=== PATIENT | female | born 1980 | race Caucasian/White ===

== ENCOUNTER → 2016-07-25 | Outpatient (CLI) | payer OTHER ==
--- NOTE | 2016-07-25 13:35 | RAD ---
EXAM DESCRIPTION: Abdomen radiography. CLINICAL HISTORY: Right lower quadrant abdominal pain, acute onset. COMPARISON: None. TECHNIQUE: Two views. FINDINGS: Bowel gas pattern is non-obstructed. There is no obvious free intraperitoneal air. Visualized segments of the abdominal organs are unremarkable. No suspicious bone lesion or fracture is seen. Bilateral tubal ligation. IMPRESSION: Nonspecific small bowel gas pattern. No evidence of obstruction. Electronically signed by: Quang Gunderson MD 07/25/2016 13:33
== END ==
LOC: RAD 12:43
PROVIDERS: ATTEND Surgery
DX: R10.11 Right upper quadrant pain (principal)

== ENCOUNTER → 2016-07-31 | Outpatient (CLI) | payer OTHER | LOC: LAB.O 12:37 | PROVIDERS: ATTEND Internal Medicine | DX: J47.9 Bronchiectasis, uncomplicated (principal) ==

== ENCOUNTER 2016-09-17 13:07 | Inpatient (IN) | payer OTHER ==
--- NOTE | 2016-09-17 13:08 | HP ---
HISTORY OF PRESENT ILLNESS: This 36-year-old, white female who is an employee of [employer] has become quite ill for the last four or five days. Other members of her family including her child as well as her mother have been ill as well and are now doing a little bit better. It started with nasal and respiratory congestion leading to hoarseness, sore throat, and eventually to a greenish sputum production moving into her lungs and contributing to some tightness in her lungs and worsening symptoms. She has been problemed by frequent recurring upper respiratory infections since a child. She was born with a condition called atelectasis and has required significant recurring treatment episodes to allow the course to continue. Dr. Garcia has followed her for the last two to three months. She has had at least two or three episodes of significant respiratory infections. She has received Rocephin, Celestone and, more recently, Bactrim. She had been given Bactrim and the prescription was called to the pharmacy, but it took her several days a month or so ago before she was able to find that the prescription was called to a different pharmacy, so delayed treatment was noted, but she still got better after a while until four days ago. She has had no hemoptysis, no nausea, vomiting, or diarrhea and only a low grade fever and chills. In May of 2016, she was admitted to the [facility] for a period of time and found to have sputum positive for a non-MRSA species. She had a chest x-ray earlier today with Dr. Garcia' clinic as well as normal white count on CBC and is admitted to the hospital because of progressive worsening even with recurring antibiotic courses. She apparently is presenting with worsening bronchiectasis with exacerbation. PAST MEDICAL HISTORY: 1. Gestational diabetes. 2. History of bronchiectasis as a child resulting in frequent recurring infections of the lung. PAST SURGICAL HISTORY: 1. Nasal fracture. 2. [place] teeth removal. 3. Sinus surgery. 4. Tonsillectomy. 5. Adenoidectomy. 6. Tubal ligation. CURRENT MEDICATIONS: None except methotrexate which she does not take while on antibiotics and infected, and in fact she has not taken the methotrexate for her arthritis for the last 2-1/2 months since her hospitalization in May of 2016. ALLERGIES: NONE KNOWN. FAMILY HISTORY: Positive for diabetes, cancer, heart disease, and strokes. 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 REVIEW OF SYSTEMS: GENERAL: Low grade fever, chills. No significant weight change recently. HEENT: No hearing or visual disturbances. NECK: No significant pain or stiffness. LUNGS: Significant cough, greenish sputum production with mild shortness of breath upon exertion and generalized malaise as well as hoarseness and sore throat. Other members of her family have also been ill. CARDIOVASCULAR: Some mild chest discomfort, especially on the right side, on deep breathing, but no palpitations. GASTROINTESTINAL: No nausea or vomiting. No diarrhea or blood in the stools. EXTREMITIES: No significant edema state. NEUROLOGIC: No focal neurologic deficits. No significant headaches. PHYSICAL EXAMINATION: VITAL SIGNS: Afebrile. Pulse 70. Blood pressure 122/76. Pulse oximetry 97% on room air. Weight 119.6 kg. GENERAL: The patient is awake, alert, oriented and communicative. She has frequent spells of deep coughing which is producing some grayish-green sputum. Specimen sent to the lab. HEENT: Within normal limits except for nasal congestion and some greenish expectorations noted from her lungs, some of which may be coming from the posterior nasal drainage from the sinuses. LUNGS: Diminished breath sounds especially in the right base and tenderness over the right anterior chest upon palpation of the chest. ABDOMEN: Soft, obese with no organomegaly, masses noted. EXTREMITIES: Fairly good size with good muscle tone. No significant pedal edema. NEUROLOGIC: No focal neurological deficits are noted. The patient is awake, alert, oriented and communicative. LABORATORY: Initial CBC showed white count about 8,000 and pulse oximetry in the mid-90s. Initial chemistries showed potassium low at 3.6, BUN 15, creatinine 0.69, glucose 109. Liver enzymes normal, albumin 4. Chest x-ray performed in the clinic and we are awaiting interpretation and opportunity to look at the films which were initially reported as showing some minor perihilar infiltrates. The possibility of a right middle lobe infiltrate to be observed closely. ASSESSMENT: 1. Chronic bronchiectasis with an acute exacerbation, rule out inspissated bronchial secretions with significant respiratory symptoms. 2. History of rheumatoid arthritis on methotrexate recently, but now stopped. 3. Chronic sinusitis, possibly contributing to the patient's symptom complex. 4. Acute bronchitis superimposed on chronic bronchiectasis. PLAN: We will continue current treatment program. Await MRSA surveillance culture. Add potassium to the supplements. He is started on combination fluoroquinolone with Levaquin as well as cefepime to assist with approaching a potential gram negative or pseudomonas infectious condition within the bronchiectasis condition. Await cultures. Close followup necessary. May eventually benefit from pulmonary intervention. May eventually benefit from bronchoscopy if symptoms do not improve. #[id number] [facility]
[2016-09-17] MEDS ORDERED: SODIUM CHLORIDE 0.9% (FLUSH) 10 ML SYG IV PRN (13:24)
[2016-09-17] MEDS ORDERED: MAGNESIUM HYDROXIDE 30 ML UD PO PRN (13:26)
[2016-09-17] MEDS ORDERED: SODIUM CHLORIDE 0.9% 1000ML 1,000 ML IVS PRN (13:26)
[2016-09-17] MEDS ORDERED: LEVALBUTEROL NEBS 1.25 MG/3 ML VIAL INH PRN (13:26)
[2016-09-17] MEDS ORDERED: IV SET AND CAP CHANGE INJ INJ SCH (13:30)
[2016-09-17] MEDS: IPRATROPIUM/ALBUTEROL 3 ML VIAL INH SCH ×3 (13:45→21:09)
[2016-09-17] MEDS ORDERED: SODIUM CHL 0.9% 50ML MIN-BAG+ 50 ML IVPB ONE ×2 (13:59→20:15)
[2016-09-17] MEDS ORDERED: CEFEPIME 2 GM VIAL IVPB ONE ×2 (13:59→20:15)
[2016-09-17] MEDS: CEFEPIME 2 GM in SODIUM CHL 0.9% 50ML MIN-BAG+ 50 ML IVPB SCH (14:09)
[2016-09-17] MEDS ORDERED: SODIUM CHLORIDE 0.9% 10 ML VIAL IV PRN (14:15)
[2016-09-17] MEDS ORDERED: levoFLOXacin 750MG IV 750 MG in PREMIX BAG 1 BAG IVPB SCH (14:30)
[2016-09-17] MEDS ORDERED: KCL 20 MEQ/NS 1,000 ML IVS PRN (14:34)
[2016-09-17] MEDS ORDERED: POTASSIUM CHLORIDE INJ 20 MEQ 20 MEQ in SODIUM CHLORIDE 0.9% 1000ML 1,000 ML IV PRN (14:43)
[2016-09-17] MEDS ORDERED: KCL 20 MEQ/NS 1,000 ML IVS ONE (14:57)
[2016-09-17] MEDS: POTASSIUM CHLORIDE 10 MEQ TAB PO SCH (15:36)
[2016-09-17] MEDS: ACETAMINOPHEN 325 MG TAB PO PRN (16:03)
[2016-09-17] MEDS ORDERED: diphenhydrAMINE HCL 25 MG CAP PO ONE (16:27)
[2016-09-17] MEDS: KCL 20 MEQ/NS 1,000 ML IVS PRN (17:13)
--- NOTE | 2016-09-17 17:26 | PCM.CORE ---
Physician DVT/VTE - Nurse DVT Assessment & Total Each Risk Factor is 1 Point: Obesity (BMI >25), Serious Lung disease (pnemonia < 1month, COPD, emphysema,etc) DVT Assessment Score: 2 - 2 Moderate Risk Treatments: Sequential Compression Device
[2016-09-17] MEDS ORDERED: ENOXAPARIN SODIUM 30 MG/0.3 ML SYG SUBCU SCH (17:30)
[2016-09-17] MEDS: AZITHROMYCIN 250 MG TAB PO SCH (17:38)
[2016-09-17] MEDS: IBUPROFEN 400 MG TAB PO PRN (20:23)
[2016-09-18] MEDS: CEFEPIME 2 GM in SODIUM CHL 0.9% 50ML MIN-BAG+ 50 ML IVPB SCH ×2 (01:49→14:46)
[2016-09-18] MEDS ORDERED: PANTOPRAZOLE SODIUM TAB 40 MG PO ONE (05:05)
[2016-09-18] MEDS: KCL 20 MEQ/NS 1,000 ML IVS PRN ×2 (05:10→19:55)
[2016-09-18] MEDS ORDERED: BENZONATATE PERLES 100 MG CAP PO PRN (05:24)
[2016-09-18] MEDS ORDERED: PROMETHAZINE W/CODEINE SYR 5 ML UD PO PRN (05:26)
[2016-09-18] MEDS: PANTOPRAZOLE SODIUM TAB 40 MG PO SCH (05:57)
--- NOTE | 2016-09-18 07:42 | RAD ---
Study: Frontal and Lateral Views of the Chest. Indication: Pneumonia Comparison: May 31, 2016 Impression: Moderate cardiomegaly with mild central pulmonary vascular congestion. Otherwise, lungs clear. No acute osseous abnormality. Electronically signed by: Nilay Chaudhry MD 09/18/2016 7:41 AM [employer]CRA[employer]
[2016-09-18] MEDS: POTASSIUM CHLORIDE 10 MEQ TAB PO SCH (07:47)
[2016-09-18] MEDS: IPRATROPIUM/ALBUTEROL 3 ML VIAL INH SCH ×4 (08:37→20:43)
--- NOTE | 2016-09-18 10:36 | RAD ---
Study: Frontal and Lateral Views of the Chest. Indication: Pneumonia Comparison: May 31, 2016 Impression: Moderate cardiomegaly with mild central pulmonary vascular congestion. Otherwise, lungs clear. No acute osseous abnormality. 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
[2016-09-18] MEDS: IBUPROFEN 400 MG TAB PO PRN (11:40)
[2016-09-18] MEDS ORDERED: CEFEPIME 2 GM VIAL IVPB ONE (14:41)
[2016-09-18] MEDS ORDERED: SODIUM CHL 0.9% 50ML MIN-BAG+ 50 ML IVPB ONE (14:42)
[2016-09-18] MEDS: ENOXAPARIN SODIUM 40 MG/0.4 ML SYG SUBCU SCH (16:23)
[2016-09-18] MEDS: HYDROcodone 5MG/APAP 325MG 1 EA TAB PO PRN ×2 (16:35→22:08)
[2016-09-18] MEDS: AZITHROMYCIN 250 MG TAB PO SCH (17:23)
--- NOTE | 2016-09-18 19:13 | PN ---
DATE: 09/18/16 SUBJECTIVE: The patient is sitting up in the bed and appears to be less dyspneic today compared to yesterday. She says in many ways she feels about the same as yesterday. She appears to be in less respiratory distress. Still coughing with some expiratory wheezing bilaterally noted in the room even without auscultation. Appetite is fairly good. Family is also present. She describes the rotations of upper respiratory infections through various family members until it came to her. Her infection started with her sinuses and then descended into her lungs. Old CT scans reveal significant architectural changes of her lungs with bronchiectasis and secretions that may eventually required bronchoscopy to assist in clearing. Also CT of the sinuses did reveal previous ethmoid surgery and chronic left sided maxillary sinusitis is evident. OBJECTIVE: Afebrile, pulse 67, blood pressure 104/44, pulse oximetry 95% on room air. Weight is 119.3 kilos. The patient is awake, alert and oriented. LUNGS: Have some bilateral rhonchi with somewhat decreased breath sounds on the right compared to the left with expiratory slowing and some rhonchi bilaterally , and some wheezing more prominent on the right than the left. HEART: Tones regular. ABDOMEN: Obese yet soft. LABORATORY: White count 5,000, hemoglobin 13.5, neutrophils 47%. Chemistry shows potassium 4.2, BUN 11, creatinine 0.58, glucose 94. C reactive protein 1.7. Urine shows some pyuria and 1+ bacteriuria. Strep screen is negative. Urine culture is negative as also is blood cultures and MRSA surveillance culture. Sputum is normal pradip at 24 hours. Influenza A and B is negative. Chest x-ray today does reveal some degree of congestion, otherwise no significant abnormalities noted. ASSESSMENT: 1. Chronic bronchiectasis noted since a child with an acute exacerbation, rule out inspissated bronchial secretions with associated significant respiratory symptoms. 2. History of rheumatoid arthritis on methotrexate recently, now stopped. 3. Chronic sinusitis, especially left maxillary possibly contributing to some of the patient's symptom complex. 4. Acute bronchitis superimposed on chronic bronchiectasis. PLAN: Will continue with Cefepime and Azithromycin combination and increase activity level. Await reevaluation. Have ordered repeat daily ambulation studies to more adequately measure and compare cardiopulmonary functioning. Increase activity is important. #[id number] [facility]
[2016-09-19] MEDS ORDERED: CEFEPIME 2 GM VIAL IVPB ONE ×3 (01:25→20:56)
[2016-09-19] MEDS ORDERED: SODIUM CHL 0.9% 50ML MIN-BAG+ 50 ML IVPB ONE ×3 (01:25→20:56)
[2016-09-19] MEDS: CEFEPIME 2 GM in SODIUM CHL 0.9% 50ML MIN-BAG+ 50 ML IVPB SCH ×2 (01:34→14:18)
[2016-09-19] MEDS: IBUPROFEN 400 MG TAB PO PRN ×2 (03:06→17:36)
[2016-09-19] MEDS: PANTOPRAZOLE SODIUM TAB 40 MG PO SCH (06:22)
[2016-09-19] MEDS: POTASSIUM CHLORIDE 10 MEQ TAB PO SCH (07:40)
[2016-09-19] MEDS: IPRATROPIUM/ALBUTEROL 3 ML VIAL INH SCH ×4 (08:05→19:20)
[2016-09-19] MEDS: KCL 20 MEQ/NS 1,000 ML IVS PRN (08:29)
[2016-09-19] MEDS: guaiFENesin ER TAB 600 MG TAB PO SCH ×2 (09:37→21:02)
[2016-09-19] MEDS: ACETAMINOPHEN 325 MG TAB PO PRN (11:01)
[2016-09-19] MEDS ORDERED: methylPREDNISolone SODIUM SUC 125 MG/2 ML VIAL IV ONE (11:30)
[2016-09-19] MEDS: ENOXAPARIN SODIUM 40 MG/0.4 ML SYG SUBCU SCH (14:18)
[2016-09-19] MEDS: AZITHROMYCIN 250 MG TAB PO SCH (17:36)
[2016-09-19] MEDS: SODIUM CHLORIDE 0.9% (FLUSH) 10 ML SYG IV SCH (21:02)
[2016-09-19] MEDS: HYDROcodone 5MG/APAP 325MG 1 EA TAB PO PRN (21:12)
[2016-09-20] MEDS: CEFEPIME 2 GM in SODIUM CHL 0.9% 50ML MIN-BAG+ 50 ML IVPB SCH (01:38)
[2016-09-20] MEDS: PANTOPRAZOLE SODIUM TAB 40 MG PO SCH (06:22)
[2016-09-20] MEDS: POTASSIUM CHLORIDE 10 MEQ TAB PO SCH (08:01)
[2016-09-20] MEDS: IPRATROPIUM/ALBUTEROL 3 ML VIAL INH SCH (09:00)
--- NOTE | 2016-09-20 09:15 | PN ---
SUPERVISING PHYSICIAN: Diana Wills MD DATE: 09/19/16 SUBJECTIVE: The patient is sitting up in bed. She complains of some shortness of breath as well as a headache. Otherwise, she denies any abdominal pain, nausea, vomiting, dizziness, or weakness. She states she still coughs occasionally, but it is better and she still has quite a bit of phlegm she is coughing up. OBJECTIVE: VITAL SIGNS: Afebrile. Heart rate 62. Blood pressure 111/55. Respiratory rate got up as high as 48, but it is now 20 breaths per minute. Oxygen saturation 92%. GENERAL: This is a 36-year-old female patient who is lying in her hospital bed. She is in no acute distress. LUNGS: Expiratory wheezing noted to the right upper and lower lobes. Essentially clear to auscultation on the left. CARDIAC: Regular rate and rhythm. ABDOMEN: Soft, nontender, nondistended. Bowel sounds are positive. EXTREMITIES: No cyanosis, clubbing or edema. NEUROLOGIC: Awake, alert and oriented times three. LABORATORY: Her preliminary surveillance MRSA of the nose shows gram positive cocci Her preliminary blood cultures show no growth after 24 hours as well as the urine culture shows no growth. ASSESSMENT: 1. Acute on chronic bronchiectasis with a history of chronic bronchiectasis since a child. 2. History of rheumatoid arthritis on methotrexate that has now been stopped. 3. Chronic sinusitis, especially left maxillary possibly contributing to some of the patient's symptom complex. 4. Mild eosinophilia. 5. Tachypnea with some mild hypoxia. PLAN: We will continue present supportive care included good pulmonary hygiene. I have also added percussion. I have also given her Mucinex 1200 mg twice a day. I have discontinued her IV fluids as she is taking p.o. fluids well. We will do routine lab in the morning. Due to her wheezing, I have also given her some steroids. I have only given her one dose. We may need to continue a taper tomorrow, but we will reevaluate tomorrow. She will need close followup with an ENT physician as well as seeing her administrative tech, Dr. Mathew Harden, in [place]. She will need a pulmonary function test at discharge. She will be encouraged to ambulate at least 3 times a day. We will continue to follow the patient closely and treat as needed. Dr. Wills is the collaborating physician and available for consultation. #[id number] [facility]
[2016-09-20] MEDS: IBUPROFEN 400 MG TAB PO PRN (09:28)
[2016-09-20] MEDS: SODIUM CHLORIDE 0.9% (FLUSH) 10 ML SYG IV SCH (09:32)
[2016-09-20] MEDS: guaiFENesin ER TAB 600 MG TAB PO SCH (09:32)
[2016-09-20 11:24] VITALS: BP 113/69; TEMP 97.6; O2SAT 96
--- NOTE | 2016-09-20 14:12 | DS ---
SUPERVISING PHYSICIAN: Diana Wills MD DISCHARGE DIAGNOSIS: 1. Acute on chronic bronchiectasis with a history of chronic bronchiectasis since a child. 2. History of rheumatoid arthritis on methotrexate that has now been stopped. 3. Chronic sinusitis, especially left maxillary, possibly contributing to some of the patient's symptom complex. 4. Mild eosinophilia. 5. Tachypnea with some hypoxia. HISTORY OF PRESENT ILLNESS: This is a 36-year-old female patient that is an employee of [employer]. She had become quite ill the last several days prior to admission. She has had several family members that have been ill, but are doing better. It started with nasal and respiratory congestion that led to hoarseness, sore throat, and eventually a greenish sputum. Her lungs had quite a bit of phlegm and included some tightness in her lungs with some increasing sputum production. She has had frequent recurring upper respiratory infections since she was a child and she has required frequent treatments on and off through most of her life. Dr. Garcia has been seeing her over the last two to three months and she has had at least two to three episodes of significant respiratory infections. She has received Rocephin , Celestone and Bactrim in the last several months. It should be noted that there was no hemoptysis, nausea, vomiting or diarrhea. She had a low grade fever and chills. In May of 2016, she was admitted to the [facility] for a period of time and found to have a sputum positive for non-MRSA species. In Dr. Garcia' clinic on the day of admission, she had a normal white count as well as a chest x-ray and she was directly admitted to the hospital due to failing outpatient therapy and recurrent antibiotic courses with worsening symptoms. She presented with worsening bronchiectasis with exacerbation. HOSPITAL COURSE: The patient was placed in the hospital. She was given breathing treatments as well as Mucinex twice daily. On the day prior to discharge, she had quite a bit of wheezing and was given a one time dose of steroids. Her white count went up slightly today, but that was most likely to her steroids. Chemistries were basically within normal limits except for a slightly elevated glucose which was also most likely due to her steroids. It is to be noted that she did have some mild eosinophilia that has been present on two or three of her CBCs. I spoke with Dr. Harden today and he will see her in his clinic today to begin workup on her chronic bronchiectasis as well as her eosinophilia. DISCHARGE PLAN: The patient will be discharged home in good condition. She is to resume her previous activity and increase it as tolerated. She is to resume her previous diet. She has an appointment today with Dr. Harden in [place]. I have sent her home on Mucinex. I spoke with Dr. Harden and he said at this time due to her cultures being negative that he would withhold antibiotics until he saw her. Her original nasal culture showed gram positive cocci, but today the final screen came back on it and it was within normal limits. She has a followup with Dr. Garcia next week. If she has any further problems or complications, she can followup with Dr. Garcia or or return to the hospital as needed. DISCHARGE MEDICATIONS: 1. Mucinex. Dr. Wills is the collaborating physician and available for consultation. #[id number] [facility]
== END 2016-09-20 11:39 | disposition home or self-care (01) | DRG 192 ==
LOC: MS 13:07 → OBSVTOIN 13:07
PROVIDERS: ADMIT Family Medicine; ATTEND Nurse Practitioner Acute Care
DX: J47.0 Bronchiectasis with acute lower respiratory infection (principal); J20.9 Acute bronchitis, unspecified; M06.9 Rheumatoid arthritis, unspecified; J32.0 Chronic maxillary sinusitis; D72.1 Eosinophilia; R09.02 Hypoxemia; E66.9 Obesity, unspecified

== ENCOUNTER → 2017-03-29 | Outpatient (CLI) | payer OTHER | END | disposition home or self-care (01) | LOC: LAB.O 12:39 | PROVIDERS: ATTEND Nurse Practitioner Acute Care | DX: N91.2 Amenorrhea, unspecified (principal) ==

== ENCOUNTER → 2017-04-02 | Outpatient (CLI) | payer OTHER | END | disposition home or self-care (01) | LOC: LAB.O 09:26 | PROVIDERS: ATTEND Nurse Practitioner Acute Care | DX: N91.2 Amenorrhea, unspecified (principal) ==

== ENCOUNTER → 2017-04-18 | Outpatient (CLI) | payer OTHER | END | disposition home or self-care (01) | LOC: LAB.O 08:34 | PROVIDERS: ATTEND Family Medicine | DX: Z00.00 Encounter for general adult medical examination without abnormal findings (principal) ==

== ENCOUNTER 2017-06-03 19:44 | Emergency (ER) | payer OTHER ==
[2017-06-03 20:07] VITALS: TEMP 97.4
--- NOTE | 2017-06-03 20:20 | ED.PDOC ---
History of Present Illness - General Chief Complaint: General Stated Complaint: dizzy, lightheaded Time Seen by Provider: 06/03/17 20:17 Source: patient Exam Limitations: no limitations - History of Present Illness Initial Comments: Tonya Stringer 36 y/o female who had recent weight loss surgery came to ER by POV because of feeling lightheaded,shaky,feels like passing out.No chest pains ,no slurred speech,no nausea/vomiting,no hematemesis. Timing/Duration: 4-6 hours Severity: moderate Improving Factors: nothing Worsening Factors: nothing Associated Symptoms: other - see hpi Allergies/Adverse Reactions: Allergies Levofloxacin [From Levaquin] Adverse Reaction (Intermediate, Verified 09/17/16 18:45) Rash Azithromycin Adverse Reaction (Verified 06/03/17 20:18) Home Medications: Ambulatory Orders Methylcobalamin [B-12] 06/03/17 Multiple Vitamin [Multi Vitamin] 1 tab PO 06/03/17 Omeprazole 06/03/17 Review of Systems - Review of Systems Constitutional: States: see HPI EENTM: States: no symptoms reported Respiratory: States: no symptoms reported Cardiology: States: no symptoms reported Gastrointestinal/Abdominal: States: no symptoms reported Genitourinary: States: no symptoms reported Musculoskeletal: States: no symptoms reported Skin: States: no symptoms reported Neurological: States: no symptoms reported Past Medical History (General) - Patient Medical History Hx Seizures: No Hx Stroke: No Hx Asthma: No Hx of COPD: No Hx Congestive Heart Failure: No Hx Pacemaker: No Hx Hypertension: No Hx Diabetes: No - gestational diabetes Hx Renal Disease: No Hx MRSA: No Hx Other PMH: Yes - Bronchiectasis Surgical History: other - bariatric surgery,BTL - Vaccination History Hx Tetanus, Diphtheria Vaccination: Yes Hx Influenza Vaccination: No Hx Pneumococcal Vaccination: No - Social History Hx Tobacco Use: No Hx Alcohol Use: No Hx Substance Use: No Hx Substance Use Treatment: No Hx Physical Abuse: No Hx Emotional Abuse: No - Activities of Daily Living Patient Lives Alone: No - family - Female History Patient is a Female of Child Bearing Age (10 -59 yrs old): Yes Hx Last Menstrual Period: 05/27/14 Patient : No Expected Date of Delivery:: 05/19/14 - Triage Comment ED Triage Comment: recent gastric surgery, causing intake of only small amts liquid diet. Sent from clinic for possible dehydration Family Medical History - Family History Mother Name: Venessa Age (years): 51 Living Status: Still Living Hx Family Asthma: Yes Age of Onset (years of age): 21 Hx Family Congestive Heart Failure: No Hx Family Hypertension: Yes Age of Onset (years of age): 27 Hx Family Stroke: Yes Age of Onset (years of age): 27 Hx Cardiac Disease: Yes - MVP Age of Onset (years of age): 35 Hx Family Diabetes: Yes Age of Onset (years of age): 46 Hx Family Cancer: Yes - cervical-sister;Breast-aunt Physical Exam - Physical Exam General Appearance: Alert, Anxious, Comfortable, No apparent distress Eye Exam: bilateral normal Ears, Nose, Throat: hearing grossly normal, normal ENT inspection, normal pharynx Neck: non-tender, supple, normal inspection Respiratory: chest non-tender, lungs clear Cardiovascular/Chest: normal peripheral pulses, regular rate, rhythm, no murmur Peripheral Pulses: radial,right: 2+, radial,left: 2+ Gastrointestinal/Abdominal: normal bowel sounds, non tender, soft, no organomegaly Back Exam: normal inspection, no CVA tenderness, no vertebral tenderness Extremity: normal range of motion, no pedal edema, no calf tenderness Neurologic: alert, oriented x 3 Skin Exam: normal color, warm/dry, other - well healed trocar insertion site Lymphatic: no adenopathy Progress - Progress Progress: 06/03/17 23:10 Last Vital Signs Temp 97.4 F L 06/03/17 20:01 Pulse 70 06/03/17 21:33 Resp 18 06/03/17 21:33 BP 148/85 06/03/17 20:01 Pulse Ox 98 06/03/17 21:33 Laboratory Tests 06/03/17 06/03/17 06/03/17 20:15 20:23 20:23 WBC 5.8 RBC 4.79 Hgb 14.0 Hct 41.5 MCV 86.8 MCH 29.3 MCHC 33.8 RDW 13.1 Plt Count 246 MPV 9.9 Absolute Neuts (auto) 2.10 Absolute Lymphs (auto) 2.80 Absolute Monos (auto) 0.60 Absolute Eos (auto) 0.30 Absolute Basos (auto) 0.00 Neutrophils % 35.9 L Lymphocytes % 48.2 Monocytes % 10.8 H Eosinophils % 4.3 Basophils % 0.8 Sodium 138 Potassium 3.4 L Chloride 102 Carbon Dioxide 23 Anion Gap 16.4 BUN 12 Creatinine 0.68 BUN/Creatinine Ratio 17.6 Random Glucose 67 L Serum Osmolality 273.7 L Calcium 9.5 Magnesium Total Bilirubin 0.7 AST 46 H ALT 54 Alkaline Phosphatase 49 Serum Total Protein 7.7 Albumin 4.6 Globulin 3.1 Albumin/Globulin Ratio 1.5 Serum HCG, Qual Urine Color Dk yellow H Urine Appearance Cloudy H Urine pH 6.0 Ur Specific [place] >= 1.030 Urine Protein 100 H Urine Glucose (UA) Negative Urine Ketones >=160 Urine Blood Large H Urine Nitrite Negative Urine Bilirubin Large Urine Urobilinogen 0.2 Ur Leukocyte Esterase Negative Urine RBC >50 H Urine WBC 1-3 Ur Epithelial Cells 3-5 Urine Bacteria 2+ H 06/03/17 06/03/17 20:23 21:25 WBC RBC Hgb Hct MCV MCH MCHC RDW Plt Count MPV Absolute Neuts (auto) Absolute Lymphs (auto) Absolute Monos (auto) Absolute Eos (auto) Absolute Basos (auto) Neutrophils % Lymphocytes % Monocytes % Eosinophils % Basophils % Sodium Potassium Chloride Carbon Dioxide Anion Gap BUN Creatinine BUN/Creatinine Ratio Random Glucose Serum Osmolality Calcium Magnesium 1.7 L Total Bilirubin AST ALT Alkaline Phosphatase Serum Total Protein Albumin Globulin Albumin/Globulin Ratio Serum HCG, Qual Negative Urine Color Urine Appearance Urine pH Ur Specific [place] Urine Protein Urine Glucose (UA) Urine Ketones Urine Blood Urine Nitrite Urine Bilirubin Urine Urobilinogen Ur Leukocyte Esterase Urine RBC Urine WBC Ur Epithelial Cells Urine Bacteria 06/03/17 23:36 [id number] Departure - Departure Clinical Impression: Hypoglycemia after GI (gastrointestinal) surgery, Fluid depletion, Hypomagnesemia, History of weight loss surgery Time of Disposition: 23:38 Disposition: Discharge to Home or Self Care Condition: Good Departure Forms: ED Discharge - Pt. Copy, Patient Portal Self Enrollment Referrals: Darin Garcia MD [Primary Care Provider] - 1-2 Weeks Home Medications: Ambulatory Orders Methylcobalamin [B-12] 06/03/17 Multiple Vitamin [Multi Vitamin] 1 tab PO 06/03/17 Omeprazole 06/03/17 Additional Instructions: NEED TO CALL UP BARIATR[facility] SURGEONS OFFICE IN AM 06/04/2017 continue with all home meds
[2017-06-03] MEDS ORDERED: DEX 5% W/NACL 0.45% 1000ML 1,000 ML IVS PRN (21:25)
[2017-06-03] MEDS ORDERED: IPRATROPIUM/ALBUTEROL 3 ML VIAL NEB ONE (21:27)
[2017-06-03 22:23] VITALS: O2SAT 98
[2017-06-03] MEDS ORDERED: MAGNESIUM SULFATE PREMIX 2GM 2 GM in PREMIX BAG 1 BAG IVPB ONE (23:12)
[2017-06-03] MEDS ORDERED: MAGNESIUM SULFATE PREMIX 2GM 50 ML IVPB ONE (23:18)
[2017-06-04 00:15] VITALS: BP 109/73
== END 2017-06-04 00:16 | disposition home or self-care (01) ==
LOC: ER 19:44
DX: K95.89 Other complications of other bariatric procedure (principal); E16.1 Other hypoglycemia; E83.42 Hypomagnesemia; E86.9 Volume depletion, unspecified
CPT/HCPCS: 36415; 36416; 80053; 81001; 82948; 83735; 84703; 85025; 94640; J3475; J7620; J7799

== ENCOUNTER → 2017-07-09 | Outpatient (CLI) | payer OTHER | END | disposition home or self-care (01) | LOC: GMAJ 14:55 | PROVIDERS: ATTEND Family Medicine | DX: E53.9 Vitamin B deficiency, unspecified (principal) ==

== ENCOUNTER → 2017-09-17 | Outpatient (CLI) | payer OTHER | LOC: LAB.O 09:52 | PROVIDERS: ATTEND Surgery | DX: E56.9 Vitamin deficiency, unspecified (principal); R12 Heartburn; R53.81 Other malaise; R53.83 Other fatigue; R06.02 Shortness of breath; R60.9 Edema, unspecified; F32.9 Major depressive disorder, single episode, unspecified; E78.00 Pure hypercholesterolemia, unspecified; E78.1 Pure hyperglyceridemia; G43.909 Migraine, unspecified, not intractable, without status migrainosus; M54.9 Dorsalgia, unspecified; G47.00 Insomnia, unspecified; M25.50 Pain in unspecified joint; N92.6 Irregular menstruation, unspecified; M06.9 Rheumatoid arthritis, unspecified; G47.9 Sleep disorder, unspecified; R40.0 Somnolence ==

== ENCOUNTER → 2017-12-06 | Outpatient (CLI) | payer OTHER | LOC: LAB.O 15:01 | PROVIDERS: ATTEND Family Medicine | DX: N30.00 Acute cystitis without hematuria (principal) ==

== ENCOUNTER 2017-12-31 09:49 | Emergency (ER) | payer OTHER ==
[2017-12-31 09:56] VITALS: BP 146/90; TEMP 97.3
--- NOTE | 2017-12-31 10:09 | ED.PDOC ---
History of Present Illness - General Chief Complaint: Bite: Animal/Insect/Human Stated Complaint: insect bite Time Seen by Provider: 12/31/17 10:04 Source: patient Exam Limitations: no limitations - History of Present Illness Initial Comments: Tonya Stringer 37 y/o female came to ER stating with insect bite last night on her forehead and left arm stating this morning feels like her throat is tightening and noted some skin swelling where bite was.Denies itching or SOB.Has history of SOB which was inborn result of difficult delivery.Uses MDI for her chronic wheezing since then. Timing/Duration: 24 hours Severity: moderate Improving Factors: nothing Worsening Factors: nothing Associated Symptoms: other - see hpi Allergies/Adverse Reactions: Allergies Levofloxacin [From Levaquin] Adverse Reaction (Intermediate, Verified 12/31/17 09:56) Rash Azithromycin Adverse Reaction (Verified 12/31/17 09:56) Unknown Home Medications: Ambulatory Orders Multiple Vitamin [Multi Vitamin] 1 tab PO DAILY 06/03/17 Azathioprine [Imuran] 50 mg PO DAILY 12/31/17 Cyanocobalamin Inj [Vitamin B-12 Inj] 1,000 mcg INJ MONTHLY 12/31/17 predniSONE 10 mg PO BID #10 tab 12/31/17 Review of Systems - Review of Systems Constitutional: States: no symptoms reported EENTM: States: no symptoms reported Respiratory: States: see HPI Skin: States: see HPI All other Systems: Reviewed and Negative, No Change from Baseline Past Medical History (General) - Patient Medical History Hx Seizures: No Hx Stroke: No Hx Asthma: No Hx of COPD: - Bronchiectasis Hx Congestive Heart Failure: No Hx Pacemaker: No Hx Hypertension: No Hx Diabetes: No Hx Renal Disease: No Hx MRSA: No Surgical History: tonsillectomy, other - Vaccination History Hx Tetanus, Diphtheria Vaccination: Yes Hx Influenza Vaccination: Yes - 2017 Hx Pneumococcal Vaccination: Yes - Social History Hx Tobacco Use: No Hx Alcohol Use: No Hx Substance Use: No Hx Substance Use Treatment: No Hx Physical Abuse: No Hx Emotional Abuse: No - Female History Patient is a Female of Child Bearing Age (10 -59 yrs old): Yes Hx Last Menstrual Period: 11/23/17 Patient : No Family Medical History - Family History Mother Name: Venessa Age (years): 51 Living Status: Still Living Hx Family Asthma: Yes Age of Onset (years of age): 21 Hx Family Congestive Heart Failure: No Hx Family Hypertension: Yes Age of Onset (years of age): 27 Hx Family Stroke: Yes Age of Onset (years of age): 27 Hx Cardiac Disease: Yes - MVP Age of Onset (years of age): 35 Hx Family Diabetes: Yes Age of Onset (years of age): 46 Hx Family Cancer: Yes - cervical-sister;Breast-aunt Physical Exam - Physical Exam General Appearance: Alert, Comfortable, No apparent distress Eye Exam: bilateral normal Ears, Nose, Throat: hearing grossly normal, normal pharynx, nasal congestion Neck: supple, normal inspection Respiratory: chest non-tender, no respiratory distress, wheezing - left side Cardiovascular/Chest: normal peripheral pulses, regular rate, rhythm, no murmur Peripheral Pulses: radial,right: 2+, radial,left: 2+ Gastrointestinal/Abdominal: non tender, soft Back Exam: normal inspection Extremity: no pedal edema, no calf tenderness Neurologic: alert, oriented x 3 Skin Exam: normal color, warm/dry Progress - Progress Progress: 12/31/17 10:14 Vital Signs - 8 hr 12/31/17 09:52 Temperature 97.3 F L Pulse Rate [ 67 Left Radial] Respiratory 20 Rate Blood Pressure 146/90 [Left Arm] O2 Sat by Pulse 99 Oximetry Departure - Departure Clinical Impression: Reaction to insect bite Time of Disposition: 10:15 Disposition: Discharge to Home or Self Care Condition: Good Departure Forms: ED Discharge - Pt. Copy, Patient Portal Self Enrollment Instructions: DI for Insect Bites and Stings Referrals: Darin Garcia MD [Primary Care Provider] - 1-2 Weeks Prescriptions: predniSONE 10 mg PO BID #10 tab Home Medications: Ambulatory Orders Multiple Vitamin [Multi Vitamin] 1 tab PO DAILY 06/03/17 Azathioprine [Imuran] 50 mg PO DAILY 12/31/17 Cyanocobalamin Inj [Vitamin B-12 Inj] 1,000 mcg INJ MONTHLY 12/31/17 predniSONE 10 mg PO BID #10 tab 12/31/17 Additional Instructions: May take Benadryl 25 mg -over the counter for itching 3 x a day as needed until better;continue with all home medications
[2017-12-31] MEDS ORDERED: DEXAMETHASONE INJ 4 MG/ML VIAL IM ONE (10:11)
[2017-12-31] MEDS ORDERED: hydrOXYzine HCl 25 MG TAB PO ONE (10:12)
[2017-12-31] MEDS ORDERED: predniSONE 20 MG TAB PO ONE (10:12)
[2017-12-31] MEDS ORDERED: IPRATROPIUM/ALBUTEROL 3 ML VIAL NEB ONE (10:12)
[2017-12-31 10:31] VITALS: O2SAT 100
== END 2017-12-31 10:45 | disposition home or self-care (01) ==
LOC: ER 09:49
DX: T63.481A Toxic effect of venom of other arthropod, accidental (unintentional), initial encounter (principal); J47.9 Bronchiectasis, uncomplicated; Y92.9 Unspecified place or not applicable
CPT/HCPCS: 94640; J1100; J7512; J7620

== ENCOUNTER → 2018-05-28 | Outpatient (CLI) | payer OTHER ==
--- NOTE | 2018-05-28 15:38 | US ---
EXAM DESCRIPTION: Liver: ULTRASOUND. CLINICAL HISTORY: GALLBLADDER COMPARISON: Gallbladder ultrasound 02/17/2016. TECHNIQUE: Transabdominal scannin-dimensional and Doppler modes. FINDINGS: Gallbladder: Small echogenic object on the wall nonmobile, no acoustic shadowing, measuring 2.6 mm. Gallbladder contracted. No fluid around the gallbladder. Minimal wall thickening-3.5 mm Non-tender with transducer pressure. Common bile duct: caliber 3.9 mm within normal limits. Liver: normal echogenicity; contour liver capsule smooth where seen. No fluid around the liver. Intrahepatic biliary ducts normal caliber. Doppler hepatopedal flow portal vein. 1.1 cm. Long axis right lobe 14.2 cm Pancreas: normal size and echogenicity. Duct not seen. Right kidney: long axis measures 9.2 cm. Normal Echogenicity. Normal cortical thickness. No hydronephrosis IMPRESSION: 1. Gallbladder is compressed with wall thickening which may be artifactual. Small nonmovable polyp under 3 mm in diameter. No fluid around the wall. No definite stones. Nontender during scanning. Normal caliber of the common bile duct. If gallbladder dysfunction is suspected, consider radionuclide hepatobiliary imaging. 2. Liver is unremarkable. Demonstrated steatosis on the prior study. No ascites. Pancreas was visualized. 3. Right kidney is negative. Electronically signed by: Frantz Sal MD 05/28/2018 3:37 PM [facility]
== END ==
LOC: US 08:08
PROVIDERS: ATTEND Nurse Practitioner Family
DX: R10.9 Unspecified abdominal pain (principal); K82.4 Cholesterolosis of gallbladder; E56.9 Vitamin deficiency, unspecified; R12 Heartburn; R53.81 Other malaise; R53.83 Other fatigue; R06.02 Shortness of breath; R60.9 Edema, unspecified; F32.9 Major depressive disorder, single episode, unspecified; E78.00 Pure hypercholesterolemia, unspecified; E78.1 Pure hyperglyceridemia; G43.909 Migraine, unspecified, not intractable, without status migrainosus; G54.9 Nerve root and plexus disorder, unspecified; G47.00 Insomnia, unspecified; M25.50 Pain in unspecified joint; N92.6 Irregular menstruation, unspecified; E28.2 Polycystic ovarian syndrome; M06.9 Rheumatoid arthritis, unspecified; G47.9 Sleep disorder, unspecified; R40.0 Somnolence

== ENCOUNTER 2018-08-21 16:44 | Inpatient (IN) | payer OTHER ==
--- NOTE | 2018-08-21 16:54 | HP ---
SUPERVISING PHYSICIAN: Darin Garcia MD CHIEF COMPLAINT: Upper respiratory problems. HISTORY OF PRESENT ILLNESS: This is a 38-year-old female who seeing her primary care physician, Dr. Garcia, today. Her whole family has been sick for over a week. They have had a variety of problems at home, mostly upper respiratory and gastrointestinal issues. She started feeling poorly about a week ago. She has had no fever, but she has had some nausea and vomiting. She also has coughing, shortness of breath and wheezing with headache. Today, her left ear actually started hurting as well. She has a significant history of bronchiectasis since she was a child. When she was seeing Dr. Garcia in the clinic today, she had wheezing throughout all lung koehler and her WBCs were 7.6, but her oxygen saturations were in the mid-80s and due to her extensive history as well as a history of rheumatoid arthritis, he called me for direct admission to the hospital. The patient was admitted to the hospital and her CMP was basically within normal limits and her urinalysis was unremarkable except for 15 of urine ketones and trace intact urine blood. She was started on Zosyn and given some fluids as well as some Solu-Medrol. Pneumonia guidelines were started with aggressive pulmonary hygiene. Blood cultures were drawn prior to antibiotics and sputum culture was obtained. Her vital signs at the hospital initially were temperature fo 98.1, heart rate 63, blood pressure 137/88, O2 saturation 97% on 2 liters nasal cannula. PAST MEDICAL HISTORY: 1. Bronchiectasis as a child. 2. Chronic low back pain with a history of a lumbar spine fracture at age 20. 3. Rheumatoid arthritis. 4. Seasonal allergies. PAST SURGICAL HISTORY: 1. Hernia repair. 2. Sinusectomy. 3. Tonsillectomy. 4. Tubal ligation. 5. Gastric sleeve. OUTPATIENT MEDICATIONS: 1. Symbicort. 2. Pristiq. 3. Vitamin B12. 4. Ambien. 5. Calcium 6. Tramadol. ALLERGIES: LEVAQUIN, AZITHROMYCIN. SOCIAL HISTORY: She lives in [place]. She is . She has no history of tobacco, ETOH or illicit drug use. REVIEW OF SYSTEMS: GENERAL: Positive for fatigue. Negative for fever or weight changes. HEENT: Positive for sinus symptoms and left ear pain. Negative for sore throat. RESPIRATORY: As per history of present illness. CARDIAC: Negative for chest pain, palpitations or tachycardia. GASTROINTESTINAL: Positive for nausea and vomiting. Negative for diarrhea, constipation. GENITOURINARY: Negative for hematuria, dysuria or polyuria. MUSCULOSKELETAL: Positive for back pain. Negative for arthralgias, myalgias. SKIN: Negative for lesions or rashes. NEUROLOGIC: Positive for headaches. Negative for dizziness or seizures. PHYSICAL EXAMINATION: VITAL SIGNS: Temperature 98.1. Heart rate 73. Blood pressure 137/88. Respiratory rate 20. O2 saturation 97% on 2 liters nasal cannula. GENERAL: This is a 38-year-old female patient who looks to be in mild respiratory distress. HEENT: Normocephalic, atraumatic. Pupils are equal and reactive. Oropharynx is clear. She does have some clear rhinorrhea. NECK: Supple without mass. RESPIRATORY: Diminished at the bases with expiratory wheezing throughout. She is tachypneic at times. She has to speak in short phrases due to her dyspnea. CARDIOVASCULAR: Regular rate and rhythm. GASTROINTESTINAL: Abdomen is soft, nondistended, nontender. Bowel sounds are positive. EXTREMITIES: No cyanosis, clubbing or edema. NEUROLOGIC: Awake, alert and oriented times three. Cranial nerves II-XII are grossly intact. SKIN: Warm and dry. LABORATORY: Labs and films are as per history of present illness. IMPRESSION: 1. Acute on chronic bronchiectasis. 2. History of rheumatoid arthritis. 3. Chronic back pain. 4. Seasonal allergies. PLAN: I have admitted the patient to the hospital. I have started the pneumonia guidelines. She has had her blood cultures drawn as well as sputum culture has been done. She will have aggressive pulmonary hygiene as per the pneumonia guidelines. She will continue with her Zosyn until her cultures become available. I will also do an IV steroid taper. She will also have an antiemetic for nausea. We will continue to monitor the patient closely and follow as needed. Dr. Garcia is the collaborating physician and available for consultation. #[id number] [facility]
[2018-08-21] MEDS ORDERED: ALBUTEROL SULFATE 2.5 MG/3 ML VIAL NEB PRN (17:20)
[2018-08-21] MEDS ORDERED: PIPERACILLIN/TAZOBACTAM 3.375 GM in SODIUM CHLORIDE 0.9% 100ML 100 ML IVPB ONE (18:06)
[2018-08-21] MEDS ORDERED: PIPERACILLIN/TAZOBACTAM 3.375 GM VIAL IVPB ONE ×2 (18:14→19:34)
[2018-08-21] MEDS ORDERED: SODIUM CHLORIDE 0.9% 100ML 100 ML IVPB ONE ×2 (18:14→19:34)
[2018-08-21] MEDS: IV SET AND CAP CHANGE INJ INJ SCH (18:18)
[2018-08-21] MEDS: ACETAMINOPHEN 325 MG TAB PO PRN (20:15)
[2018-08-21] MEDS: IPRATROPIUM/ALBUTEROL 3 ML VIAL INH SCH (20:51)
[2018-08-21] MEDS: SODIUM CHLORIDE 0.9% (FLUSH) 10 ML SYG IV SCH (21:12)
[2018-08-21] MEDS: PIPERACILLIN/TAZOBACTAM 3.375 GM in SODIUM CHLORIDE 0.9% 100ML 100 ML IVPB SCH (21:12)
[2018-08-21] MEDS: methylPREDNISolone SODIUM SUC 125 MG/2 ML VIAL IV SCH (23:46)
[2018-08-22] MEDS ORDERED: PIPERACILLIN/TAZOBACTAM 3.375 GM VIAL IVPB ONE ×4 (05:15→19:30)
[2018-08-22] MEDS ORDERED: SODIUM CHLORIDE 0.9% 100ML 100 ML IVPB ONE ×4 (05:15→19:31)
[2018-08-22] MEDS: PIPERACILLIN/TAZOBACTAM 3.375 GM in SODIUM CHLORIDE 0.9% 100ML 100 ML IVPB SCH ×3 (05:46→21:05)
[2018-08-22] MEDS: methylPREDNISolone SODIUM SUC 125 MG/2 ML VIAL IV SCH ×2 (05:46→12:27)
[2018-08-22] MEDS: ACETAMINOPHEN 325 MG TAB PO PRN ×3 (05:49→19:42)
[2018-08-22] MEDS: PANTOPRAZOLE SODIUM IV 40 MG VIAL IV SCH (06:12)
--- NOTE | 2018-08-22 07:02 | RAD ---
EXAM: Two view chest. INDICATION: Pneumonia. COMPARISON: Chest x-ray: 09/18/2016. FINDINGS: Cardiac silhouette: Unremarkable. Chantale: Unremarkable. Lobar consolidation: None. Pleural effusion: None. Pneumothorax: None. Other: None. Bones: Unremarkable. Other: None. IMPRESSION: 1. No acute cardiopulmonary process. Electronically signed by: Tyler Ames MD 08/22/2018 6:59 AM [facility] Workstation: [id number]
[2018-08-22] MEDS: IPRATROPIUM/ALBUTEROL 3 ML VIAL INH SCH ×4 (07:15→19:39)
[2018-08-22] MEDS: SODIUM CHLORIDE 0.9% (FLUSH) 10 ML SYG IV SCH ×2 (09:00→21:05)
[2018-08-22] MEDS: ONDANSETRON INJ 4 MG/2 ML VIAL IV PRN (12:22)
[2018-08-22] MEDS ORDERED: methylPREDNISolone SODIUM SUC 40 MG/ML VIAL IV SCH (14:00)
[2018-08-22] MEDS: IBUPROFEN 400 MG TAB PO PRN (17:32)
[2018-08-22] MEDS: methylPREDNISolone SODIUM SUC 40 MG/ML VIAL IV SCH (19:39)
[2018-08-22] MEDS: ZOLPIDEM TARTRATE 10 MG TAB PO PRN (21:52)
[2018-08-23] MEDS: methylPREDNISolone SODIUM SUC 40 MG/ML VIAL IV SCH ×2 (03:40→13:24)
[2018-08-23] MEDS: PIPERACILLIN/TAZOBACTAM 3.375 GM in SODIUM CHLORIDE 0.9% 100ML 100 ML IVPB SCH ×3 (05:45→21:09)
[2018-08-23] MEDS: PANTOPRAZOLE SODIUM IV 40 MG VIAL IV SCH (06:08)
[2018-08-23] MEDS: guaiFENesin ER TAB 600 MG TAB PO SCH ×2 (08:54→21:05)
[2018-08-23] MEDS: IBUPROFEN 400 MG TAB PO PRN (08:54)
[2018-08-23] MEDS: ONDANSETRON INJ 4 MG/2 ML VIAL IV PRN ×2 (08:54→17:29)
[2018-08-23] MEDS: predniSONE 20 MG TAB PO SCH (08:54)
[2018-08-23] MEDS: SODIUM CHLORIDE 0.9% (FLUSH) 10 ML SYG IV SCH ×2 (08:55→21:07)
[2018-08-23] MEDS: IPRATROPIUM/ALBUTEROL 3 ML VIAL INH SCH ×4 (09:08→21:19)
--- NOTE | 2018-08-23 10:17 | PN ---
SUPERVISING PHYSICIAN: Darin Garcia MD DATE: 08/22/18 SUBJECTIVE: The patient is sitting up in bed. She is still coughing quite a bit as well as some wheezing. She gets short of breath with exertion. She denies chest pain, nausea or vomiting. OBJECTIVE: VITAL SIGNS: Temperature 97.9, heart rate 75, blood pressure 97/57, respiratory rate 18, 02 saturation 98% on room air. RESPIRATORY: Expiratory wheezes throughout, diminished at the bases. Her lung sounds are slightly improved since yesterday. HEART: Regular rate and rhythm. It was reported earlier today that her heart rate did drop to the 40s on the hall monitor. GI: Abdomen soft, nondistended, non-tender. Bowel sounds are positive. NEURO: She is awake, alert, and oriented x3. LABORATORY: WBC 5.7, hemoglobin 13.3, hematocrit 40.6. She did have a left shift on her differential. Chemistries are unremarkable. Sputum cultures are pending. Her preliminary blood cultures show no growth in 24 hours. Chest x-ray shows no acute cardiopulmonary processes. All other labs and films have been reviewed via the EMR. ASSESSMENT: 1. Acute on chronic bronchiectasis. 2. History of rheumatoid arthritis. 3. Chronic back pain. 4. Seasonal allergies. PLAN: We will continue present supportive care including good pulmonary hygiene. Will continue on her Zosyn until her sputum culture results are available. I will hold on any lab at this time as her labs and x-rays are fairly stable. Her heart rate is reported down in the 40s and on discharge we will need to put her on a 24-hour Holter monitor from the hospital. We will monitor her heart rate closely and followup with Dr. Garcia after that. When she has a low heart rate it was reported that her vital signs were stable and there was no reported dizziness or chest pain. I have also added guaifenesin to help with some of her secretions. Will continue to monitor closely and follow as needed. Dr. Garcia is the collaborating physician available for consultation. [facility][id number] [facility]
[2018-08-23] MEDS ORDERED: KETOROLAC TROMETHAMINE INJ 60 MG/2 ML VIAL IM ONE (11:40)
[2018-08-23] MEDS ORDERED: PROMETHAZINE HCL INJ 25 MG/ML VIAL IM ONE (11:41)
[2018-08-23] MEDS ORDERED: LACTATED RINGERS 1,000 ML IVS ONE (11:44)
[2018-08-23] MEDS ORDERED: PIPERACILLIN/TAZOBACTAM 3.375 GM VIAL IVPB ONE ×2 (12:55→19:51)
[2018-08-23] MEDS ORDERED: SODIUM CHLORIDE 0.9% 100ML 100 ML IVPB ONE ×2 (12:55→19:52)
[2018-08-23] MEDS: ACETAMINOPHEN-CAFF-BUTALBITAL 1 EA TAB PO PRN ×2 (18:21→22:43)
[2018-08-23] MEDS: DEX 5% W/NACL 0.9% 1000ML 1,000 ML IVS PRN (18:22)
[2018-08-23] MEDS: ZOLPIDEM TARTRATE 10 MG TAB PO PRN (22:48)
[2018-08-23] MEDS ORDERED: SODIUM CHLORIDE 0.9% 1000ML 1,000 ML IVS ONE (23:32)
[2018-08-24] MEDS: DEX 5% W/NACL 0.9% 1000ML 1,000 ML IVS PRN ×2 (04:23→17:32)
[2018-08-24] MEDS ORDERED: SODIUM CHLORIDE 0.9% 100ML 100 ML IVPB ONE (04:23)
[2018-08-24] MEDS ORDERED: PIPERACILLIN/TAZOBACTAM 3.375 GM VIAL IVPB ONE (04:23)
[2018-08-24] MEDS: SODIUM CHLORIDE 0.9% (FLUSH) 10 ML SYG IV PRN ×2 (05:56→21:38)
[2018-08-24] MEDS: PIPERACILLIN/TAZOBACTAM 3.375 GM in SODIUM CHLORIDE 0.9% 100ML 100 ML IVPB SCH (05:57)
[2018-08-24] MEDS: PANTOPRAZOLE SODIUM IV 40 MG VIAL IV SCH (06:31)
[2018-08-24] MEDS: IPRATROPIUM/ALBUTEROL 3 ML VIAL INH SCH ×4 (08:15→20:56)
[2018-08-24] MEDS: ONDANSETRON INJ 4 MG/2 ML VIAL IV PRN (09:21)
[2018-08-24] MEDS: predniSONE 20 MG TAB PO SCH (09:24)
[2018-08-24] MEDS: guaiFENesin ER TAB 600 MG TAB PO SCH ×2 (09:24→20:46)
[2018-08-24] MEDS: SODIUM CHLORIDE 0.9% (FLUSH) 10 ML SYG IV SCH (09:25)
--- NOTE | 2018-08-24 09:25 | RAD ---
EXAM DESCRIPTION: Chest,2 Views CLINICAL HISTORY: Bronchiectasis acute exacerbation COMPARISON: 08/22/2018 FINDINGS: Two views of the chest are submitted. Cardiac silhouette appears normal. No focal parenchymal or pleural disease. No acute bony abnormality. There is no significant pulmonary vascular engorgement. IMPRESSION: No evidence of acute cardiopulmonary disease. Electronically signed by: Frantz Hanks 08/24/2018 9:23 AM IT CONSULTING DIRECTOR
--- NOTE | 2018-08-24 09:43 | PN ---
SUPERVISING PHYSICIAN: Lonnie Roach MD DATE: 08/23/18 SUBJECTIVE: The patient notes that she continues to have some exertional dyspnea and is starting to produce a little bit more sputum. She has had a continuous headache which she describes as migraine and we discussed utilizing some IM Phenergan and IM Toradol and Fioricet. She has also not been able to have much in regard to caloric intake and may be in a mild fasting state and starting to become catabolic which may be adding to her headaches so we discussed starting her on some IV fluids, initially giving her LR bolus and followup with some D5. OBJECTIVE: VITAL SIGNS: Temperature 97.8, pulse 65, blood pressure 93/56, respirations 16, saturation 97% on room air. I&O: positive balance of 440 with 1090 in and 650 out. Weight is 70.2 kg. GENERAL: The patient is resting in bed. She appears to be in no acute distress but is obviously having some pain issues. When she opens her eyes she grimaces and admits that she does have a headache that is more located in the frontal lobe area than anything. CHEST: Lung sounds with no obvious wheezing today but she continues with a very coarse rhonchi throughout all koehler with no rales noted. HEART: Regular rate and rhythm. ABDOMEN: Soft, non-tender with positive bowel sounds. NEURO: She is alert and oriented x 3. LABORATORY: No additional laboratory [id number] today. RADIOLOGY: No additional radiographic studies. ASSESSMENT: 1. Chronic bronchiectasis with exacerbation with concerns for pneumonia, specifically strep pneumoniae or Pseudomonas with patient being treated aggressively on Zosyn awaiting culture results with continued episodes of hypoxia. 2. Headache, possible migraine related to some mild dehydration. 3. Dehydration secondary to some nausea and vomiting and poor oral intake. 4. History of rheumatoid arthritis on multiple modulating medications placing the patient in a immunocompromised state complicating #1. 5. Chronic back pain. 6. Seasonal allergies. PLAN: Will go ahead and continue with very aggressive pulmonary hygiene today. Given that she has bronchiectasis will go ahead and be pretty aggressive with some fluids to see if we can loosen up some sputum with her CPT and help airway clearance. She continues with exacerbation and we will go ahead an continue with aggressive Solu-Medrol and taper it as she improves clinically. She remains on Duoneb treatments and Zosyn for antibiotic coverage. Will await sputum cultures, blood cultures do remain negative at this point. Will give her some fluid boluses LR and start her on some maintenance of D5 normal saline at 150 and monitor closely. I will anticipate at least another 24 to 48 hours hospitalization as she is making slow clinical progression. Until she can transition to outpatient management, will continue to monitor and treat as needed. #[id number] [facility]
[2018-08-24] MEDS ORDERED: KETOROLAC TROMETHAMINE INJ 30 MG/ML VIAL IV ONE (11:40)
[2018-08-24] MEDS ORDERED: PROMETHAZINE HCL INJ 25 MG/ML VIAL IM ONE (11:40)
[2018-08-24] MEDS: levoFLOXacin 750MG IV 750 MG in PREMIX BAG 1 BAG IVPB SCH (12:33)
[2018-08-24] MEDS: ENOXAPARIN SODIUM 40 MG/0.4 ML SYG SUBCU SCH (12:40)
[2018-08-24] MEDS ORDERED: SODIUM CHL 0.9% 50ML MIN-BAG+ 50 ML IVPB ONE ×2 (14:19→19:31)
[2018-08-24] MEDS ORDERED: CEFEPIME 2 GM VIAL ONE ×2 (14:19→19:31)
[2018-08-24] MEDS: CEFEPIME 2 GM in SODIUM CHL 0.9% 50ML MIN-BAG+ 50 ML IVPB SCH ×2 (14:38→21:38)
[2018-08-24] MEDS: IBUPROFEN 400 MG TAB PO PRN ×2 (17:29→21:34)
[2018-08-24] MEDS: ACETAMINOPHEN-CAFF-BUTALBITAL 1 EA TAB PO PRN ×2 (17:29→21:34)
[2018-08-24] MEDS: IV SET AND CAP CHANGE INJ INJ SCH (19:30)
[2018-08-24] MEDS: ZOLPIDEM TARTRATE 10 MG TAB PO PRN (21:55)
--- NOTE | 2018-08-24 22:04 | PN ---
DATE: 08/24/18 SUPERVISING PHYSICIAN: Lonnie Roach M.D. SUBJECTIVE: The patient continues to have a headache and a good deal of nausea. I discussed with her that it possibly could be related to the Zosyn and will work to transition her to Cefepime and Levaquin. She did have an allergy listed to Levaquin but she notes that that was really not a reaction, it was just that she had irritation of a vein at some point with IV. I discussed that we will try to test this with her initial test. Will continue with Levaquin and Cefepime. The patient continues to have episodes of bradycardia but has maintained a fairly normal blood pressure and has no complications, but yet she has not been up ambulating. This is not a new finding and has been in the process of being worked up as an outpatient. She has also noted that she was able to clear quite a bit of mucous last night and feels like her breathing is a little improved. OBJECTIVE: VITAL SIGNS: Temperature 98.2, pulse 58, blood pressure 17/68, respirations 16, satting 97% on room air. I's and O's show a positive balance of 1400 with weight of 72.2 kg. CHEST: Lungs continue to be very coarse with prominent rhonchi heard throughout all lung koehler. No wheezing. HEART: Regular rate and rhythm. ABDOMEN: Soft, non-tender. Positive bowel sounds. NEUROLOGIC: She is alert and oriented times three. LABORATORY: BMP which showed normal electrolytes. BUN 20, creatinine 0.78, calcium 8.4. MICROBIOLOGY: Sputum culture continues to be pending. Blood cultures remain negative after 3 days. RADIOLOGY: Chest x-ray this morning per radiology interpretation shows no acute cardiopulmonary disease. ASSESSMENT: 1. Chronic bronchiectasis with exacerbation with concerns for pneumonia, specifically strep pneumoniae or Pseudomonas with patient being initially treated with Zosyn, but not currently tolerating and will be transitioned to Levaquin and Cefepime. 2. Headache, possible migraine, although probably related to Zosyn showing some improvement with some hydration, but continues to be persistent. Will continue to monitor. 3. Dehydration secondary to nausea and vomiting with poor oral intake and likely a mild catabolic state from fasting. 4. History of rheumatoid arthritis on multiple immune modulating medications placing the patient in a immunocompromised state complicating #1. 5. Chronic back pain. 6. Seasonal allergies. PLAN: Again, will continue with aggressive pulmonary hygiene. In regards to the antibiotics, will try a small dose of Levaquin and if it is successful will start her on Levaquin 750 every 24 hours and as well as Cefepime every 8 hours again for concerns for developing pneumonia with strep pneumoniae or Pseudomonas. Hopefully this regimen of medications once the Zosyn is stopped will help resolve her headache. She continues to have good response with fluids and the Mucinex, and is starting to have some mobilization of her sputum. Hopefully will be able to transition the patient to oral medication in the next 1 to 2 days and discharge at that point. Until she can transition to outpatient management will continue to monitor and treat as needed. #[id number] [facility]
[2018-08-25] MEDS: DEX 5% W/NACL 0.9% 1000ML 1,000 ML IVS PRN ×2 (01:32→08:59)
[2018-08-25] MEDS ORDERED: SODIUM CHL 0.9% 50ML MIN-BAG+ 50 ML IVPB ONE ×3 (04:53→19:18)
[2018-08-25] MEDS ORDERED: CEFEPIME 2 GM VIAL ONE ×3 (04:53→19:18)
[2018-08-25] MEDS: CEFEPIME 2 GM in SODIUM CHL 0.9% 50ML MIN-BAG+ 50 ML IVPB SCH ×3 (06:08→21:19)
[2018-08-25] MEDS: PANTOPRAZOLE SODIUM IV 40 MG VIAL IV SCH (06:11)
[2018-08-25] MEDS: ACETAMINOPHEN-CAFF-BUTALBITAL 1 EA TAB PO PRN ×3 (06:14→20:22)
[2018-08-25] MEDS: IBUPROFEN 400 MG TAB PO PRN ×3 (06:14→20:18)
[2018-08-25] MEDS: ENOXAPARIN SODIUM 40 MG/0.4 ML SYG SUBCU SCH (08:54)
[2018-08-25] MEDS: predniSONE 20 MG TAB PO SCH (08:54)
[2018-08-25] MEDS: ONDANSETRON INJ 4 MG/2 ML VIAL IV PRN (08:59)
[2018-08-25] MEDS: guaiFENesin ER TAB 600 MG TAB PO SCH ×2 (09:00→20:15)
[2018-08-25] MEDS: IPRATROPIUM/ALBUTEROL 3 ML VIAL INH SCH ×4 (09:05→21:10)
[2018-08-25] MEDS: levoFLOXacin 750MG IV 750 MG in PREMIX BAG 1 BAG IVPB SCH (11:50)
--- NOTE | 2018-08-25 15:26 | CT ---
EXAM DESCRIPTION: CT abdomen and pelvis with contrast CLINICAL HISTORY: Abdomen pain. Nausea and vomiting COMPARISON: 04/12/2016 TECHNIQUE: Spiral CT with multiplanar reformatted images. Intravenous iodinated nonionic contrast This exam was performed according to our departmental dose-optimization program, which includes automated exposure control, adjustment of the mA and/or kV according to patient size and/or use of iterative reconstruction technique. FINDINGS: Normal heart size. No pulmonary edema or focal infiltrate. Small right pleural effusion. Third spacing with subcutaneous edema throughout the abdomen and pelvis. Small volume of perihepatic ascites and moderate amount of fluid in the pelvis. No enhancement to the peritoneal surfaces. No omental or peritoneal nodule No hepatic mass lesion. Normal wall thickness of the gallbladder. Pericholecystic fluid and periportal edema. Normal contrast enhancement of hepatic and portal splenic and superior mesenteric veins. No biliary duct dilation Normal appearance of the spleen, pancreas, adrenal glands and kidneys Gastric sleeve postsurgical change without acute abnormality. No mass lesion or diagnostic focal inflammatory process in the stomach, small or large intestine. Moderate amount stool in the colon. Normal terminal ileum and appendix Normal pelvic viscera No acute bony abnormality. Osteoarthritis of the left sacroiliac joint. Multilevel mild degenerative change in the spine IMPRESSION: Third spacing of fluid with small pleural effusion, small-volume ascites, pericholecystic and periportal edema and diffuse subcutaneous edema Constipation No focal inflammatory process identified Electronically signed by: Abdon Morin MD 08/25/2018 3:24 PM [employer]
[2018-08-25] MEDS ORDERED: FUROSEMIDE INJ 20 MG/2 ML VIAL IV ONE (15:55)
[2018-08-25] MEDS ORDERED: SODIUM CHLORIDE 0.9% (FLUSH) 10 ML SYG IV ONE (15:57)
[2018-08-25] MEDS ORDERED: BISACODYL TAB 5 MG TAB PO ONE ×2 (15:58→16:29)
[2018-08-25] MEDS ORDERED: MAGNESIUM HYDROXIDE 30 ML UD PO PRN (15:58)
[2018-08-25] MEDS: METOCLOPRAMIDE HCL INJ 10 MG/2 ML VIAL IV SCH (16:30)
--- NOTE | 2018-08-25 20:23 | PN ---
DATE: 08/25/18 SUPERVISING PHYSICIAN: Abdon Wills M.D. SUBJECTIVE: The patient has tolerated Levaquin and Cefepime without any problems. She continues to have a mild headache, although it is much better since stopping Zosyn, however she continues to have persistent nausea and is unable to tolerate much of a diet, including clear liquids. She does note that she has been having a little bit of pain on the right upper quadrant. She has been afebrile. She notes that her lung function and breathing has improved since admission. OBJECTIVE: VITAL SIGNS: Temperature 97.9, pulse 72, blood pressure 112/73, respirations 20, satting 99% on room air. I's and O's show a negative balance of 960 with 2540 in, 3500 out. Weight is 74.5 kg. CHEST: Lung sounds continue to be quite coarse and with prominent rhonchi, although somewhat improved from previous days, but continues to be bilateral in presentation. No wheezing is noted. HEART: Regular rate and rhythm. ABDOMEN: Soft. There is some tenderness noted to the right upper quadrant on palpation. She does have positive bowel sounds. NEUROLOGIC: She is alert and oriented times three. LABORATORY: CBC shows a white count of 7,300 with hemoglobin 11.7, hematocrit 36.9, platelet count 269,000. Differential does show a continued left shift. Chemistries show all normal electrolytes. BUN 12, creatinine 0.76. Liver functions showing to be within normal limits. Lipase and amylase both normal. MICROBIOLOGY: Preliminary cultures on sputum show possible Strep pneumoniae with further workup required. Blood cultures remain negative at 4 days. RADIOLOGY: Abdominal/pelvis CT with contrast today showed third spacing of fluid with small pleural effusion, small volume ascites with pericholecystic and periportal edema and diffuse subcutaneous edema with notable constipation but no focal inflammatory processes were noted. The pancreas, adrenal glands, spleen and kidneys were all normal in appearance. Gastric sleeve showed post surgical changes without any acute abnormalities. No masses, lesion or diagnostic inflammatory processes in the stomach, small or large intestine. There was note of moderate amount of stool in the colon and a normal terminal ileum and appendix. ASSESSMENT: 1. Chronic bronchiectasis with acute exacerbation with concerns for pneumonia, specifically strep pneumoniae with culture results preliminary showing possible Strep pneumoniae and further workup needed with the patient being initially treated on Zosyn and now transitioned to Levaquin and Cefepime showing good improvement. 2. Headache, possible migraine, improving with fluids and after stopping Zosyn. 3. Right upper quadrant pain with persistent nausea and vomiting with CT scan showing some nonspecific findings with the patient having a history of gastric sleeve procedure. Possible differential would include stress induced gastric irritation due to steroids versus some mild gastroparesis versus constipation versus biliary colic. 4. History of rheumatoid arthritis on multiple immune modulating medications placing the patient in a immunocompromised state complicating #1. 5. Chronic back pain. 6. Seasonal allergies. PLAN: Will continue with antibiotics with Levaquin and Cefepime as she has tolerated these well. Will await the final culture results which do appear to be Strep pneumoniae. Once those culture results are back, will target antibiotic therapy as appropriate. Will start her on some Lasix to see if we can remove some of the fluid noted on CT, including the ascites and see if this will help resolve some of her right upper quadrant pain. She will continue on prednisone at 40 mg p.o. We do have her on gastric prophylaxis with Protonix but will go ahead and start her on some Reglan 5 mg a.c. to assist with gastroparesis hopefully decreasing some of her nausea. Hopefully be able to transition the patient to outpatient management tomorrow. I did discuss with her after discussing the case with Dr Garcia, her primary care provider, we may discharge once she is stabilized in regards to the acute bronchiectasis exacerbation and continue workup of the right upper quadrant pain as an outpatient versus maybe having a consultation with Dr. Og, but this will depend on how she clinically presents in the morning after her current treatment plan. Until then will continue to monitor and treat as needed. #[id number] [facility]
[2018-08-25] MEDS: ZOLPIDEM TARTRATE 10 MG TAB PO PRN (22:22)
[2018-08-26] MEDS ORDERED: CEFEPIME 2 GM VIAL ONE ×2 (05:18→14:08)
[2018-08-26] MEDS ORDERED: SODIUM CHL 0.9% 50ML MIN-BAG+ 50 ML IVPB ONE ×2 (05:18→14:08)
[2018-08-26] MEDS: CEFEPIME 2 GM in SODIUM CHL 0.9% 50ML MIN-BAG+ 50 ML IVPB SCH ×2 (05:21→14:12)
[2018-08-26] MEDS: PANTOPRAZOLE SODIUM IV 40 MG VIAL IV SCH (05:21)
[2018-08-26] MEDS: ACETAMINOPHEN-CAFF-BUTALBITAL 1 EA TAB PO PRN ×2 (06:00→09:43)
[2018-08-26] MEDS: IBUPROFEN 400 MG TAB PO PRN (06:00)
[2018-08-26] MEDS: METOCLOPRAMIDE HCL INJ 10 MG/2 ML VIAL IV SCH ×2 (07:30→11:41)
[2018-08-26] MEDS: IPRATROPIUM/ALBUTEROL 3 ML VIAL INH SCH ×2 (08:00→11:20)
--- NOTE | 2018-08-26 08:00 | RAD ---
EXAM DESCRIPTION: Chest,2 Views CLINICAL HISTORY: exacerbation bronchiectasis -pneumoccal pneumonia COMPARISON: August 24, 2018 FINDINGS: The cardiomediastinal silhouette is unremarkable. There is no airspace consolidation or pleural effusion. The bronchovascular markings are within normal limits, and the lungs are not hyperinflated. There is no pneumothorax or acute fracture. IMPRESSION: Negative exam. Electronically signed by: Sumeet De Oliveira MD 08/26/2018 7:57 AM [facility]
[2018-08-26] MEDS ORDERED: BISACODYL TAB 5 MG TAB PO SCH (09:00)
[2018-08-26] MEDS: predniSONE 20 MG TAB PO SCH (09:02)
[2018-08-26] MEDS: guaiFENesin ER TAB 600 MG TAB PO SCH (09:02)
[2018-08-26] MEDS: ENOXAPARIN SODIUM 40 MG/0.4 ML SYG SUBCU SCH (09:03)
[2018-08-26] MEDS: levoFLOXacin 750MG IV 750 MG in PREMIX BAG 1 BAG IVPB SCH (11:41)
[2018-08-26] MEDS: ONDANSETRON INJ 4 MG/2 ML VIAL IV PRN (12:44)
[2018-08-26 15:14] VITALS: BP 103/66; TEMP 98.1; O2SAT 97
--- NOTE | 2018-09-04 16:06 | DS ---
SUPERVISING PHYSICIAN: Abdon Wills MD ADMISSION DIAGNOSIS: 1. Chronic bronchiectasis with acute exacerbation with concerns for pneumonia, specifically strep pneumoniae with culture results preliminary showing possible Strep pneumoniae and further workup needed with the patient being initially treated on Zosyn and now transitioned to Levaquin and Cefepime showing good improvement. 2. Headache, possible migraine, improving with fluids and after stopping Zosyn. 3. Right upper quadrant pain with persistent nausea and vomiting with CT scan showing some nonspecific findings with the patient having a history of gastric sleeve procedure. Possible differential would include stress induced gastric irritation due to steroids versus some mild gastroparesis versus constipation versus biliary colic. 4. History of rheumatoid arthritis on multiple immune modulating medications placing the patient in a immunocompromised state complicating #1. 5. Chronic back pain. 6. Seasonal allergies. DISCHARGE DIAGNOSIS: 1. Chronic bronchiectasis with acute exacerbation with concerns for pneumonia, specifically strep pneumoniae with culture results preliminary showing possible Strep pneumoniae and further workup needed with the patient being initially treated on Zosyn and now transitioned to Levaquin and Cefepime with patient continuing to show good improvement and able to transition to p.o. medication. 2. Headache, possible migraine, improving with fluids and after stopping Zosyn. 3. Right upper quadrant pain with persistent nausea and vomiting with CT scan showing some nonspecific findings with the patient having a history of gastric sleeve procedure. Possible differential would include stress induced gastric irritation due to steroids versus some mild gastroparesis versus constipation versus biliary colic. 4. History of rheumatoid arthritis on multiple immune modulating medications placing the patient in a immunocompromised state complicating #1. 5. Chronic back pain. 6. Seasonal allergies. 7. Strep pneumoniae with final cultures confirming strep pneumoniae which was sensitive to Levaquin. REASON FOR HOSPITALIZATION: This is a 38-year-old female who seeing her primary care physician, Dr. Garcia, today. Her whole family has been sick for over a week. They have had a variety of problems at home, mostly upper respiratory and gastrointestinal issues. She started feeling poorly about a week ago. She has had no fever, but she has had some nausea and vomiting. She also has coughing, shortness of breath and wheezing with headache. Today, her left ear actually started hurting as well. She has a significant history of bronchiectasis since she was a child. When she was seeing Dr. Garcia in the clinic today, she had wheezing throughout all lung koehler and her WBCs were 7.6, but her oxygen saturations were in the mid-80s and due to her extensive history as well as a history of rheumatoid arthritis. She was a direct admission to the hospital. The patient was admitted to the hospital and her CMP was basically within normal limits and her urinalysis was unremarkable except for 15 of urine ketones and trace intact urine blood. She was started on Zosyn and given some fluids as well as some Solu-Medrol. Pneumonia guidelines were started with aggressive pulmonary hygiene. Blood cultures were drawn prior to antibiotics and sputum culture was obtained. Her vital signs at the hospital initially were temperature fo 98.1, heart rate 63, blood pressure 137/88, O2 saturation 97% on 2 liters nasal cannula. LABORATORY: White count on admission was 5,700, discharge 7,300. Hemoglobin and hematocrit were stable at 11.7 and 36.9 showed to be on discharge with 269,000 platelets. Differential did show a left shift which was resolving prior to discharge. Chemistries showed normal electrolytes both on admission and discharge as well as BUN of 16,creatinine 0.65. Liver functions were all within normal limits. Lipase on admission was normal. Urinalysis did show 15 ketones, trace intact blood. MICROBIOLOGY: Final sputum culture results showed streptococcus pneumoniae which was resistant to Clindamycin, Erythromycin, Tetracycline, Bactrim but sensitive to vancomycin, ceftriaxone and Levaquin. RADIOLOGY: She initially had a chest x-ray on admission that showed per radiology interpretation of a 2-view chest no acute cardiopulmonary process. Final chest x-ray on the morning of discharge per radiology interpretation showed a negative exam. She also had abdominal/pelvic CT with contrast secondary to her persistent abdominal pain and nausea and vomiting and per radiology interpretation showed third spacing of fluid with pleural effusion, small-volume ascites with pericholecystic and periportal edema and diffuse subcutaneous edema, no focal inflammatory processes are noted. HOSPITAL COURSE: Ms. Stringer was admitted as noted above for exacerbation of bronchiectasis which was found to be secondary to bacterial infection with streptococcus pneumonia. She was treated aggressively on admission with antibiotics given her underlying bronchiectasis with Zosyn. She was then transitioned to Cefepime and Levaquin and showed good response to treatment. She was given fluids. She had persistent nausea and vomiting which is felt to be possibly initially related to Zosyn but slightly resolved after changing to Ceftin and Levaquin. On the morning of discharge, she was actually able to tolerate a diet without any nausea or vomiting after being started on some Reglan. She had progressed clinically well enough to continue with outpatient management. PLAN: Ms. Stringer was discharged on 08/26/18 with instructions to followup with her primary care physician, Dr. Garcia, on at 1515 hours. She is to resume her home medications as instructed. She was to advance her diet as tolerated on a low-fat diet. She is to followup with Dr. Og which is to be arranged with Dr. Garcia office. She was told to return to the hospital should she have any concerning symptoms and activities were to increase as tolerated. DISCHARGE MEDICATIONS: 1. Zofran 4 mg every 6 hours has needed, #15. 2. Fioricet 1 every 4 hours as needed, #30, no refills. 3. Guaifenesin tablets 600 mg [id number]. 4. Levaquin 250 mg, #7, no refills. 5. Medrol Dosepak as directed. 6. Reglan tablet 5 mg before meals as needed, #30, no refills. 7. Protonix 40 mg before each meal, #30, [id number]. All other medications prior to admission were continued. Disposition: Patient dry sterile compression dressing home. Condition on discharge was stable and improving. #[id number] [facility]
== END 2018-08-26 16:09 | disposition home or self-care (01) | DRG 192 ==
LOC: MS 16:44
PROVIDERS: ADMIT Nurse Practitioner Acute Care; ATTEND Nurse Practitioner Family
PROC: BW211ZZ Computerized Tomography (CT Scan) of Abdomen and Pelvis using Low Osmolar Contrast (ICD-10-PCS; principal; 2018-08-25)
DX: J47.1 Bronchiectasis with (acute) exacerbation (principal); J13 Pneumonia due to Streptococcus pneumoniae; G43.909 Migraine, unspecified, not intractable, without status migrainosus; E86.0 Dehydration; R10.11 Right upper quadrant pain; M06.9 Rheumatoid arthritis, unspecified; G89.29 Other chronic pain; M54.9 Dorsalgia, unspecified; Z98.84 Bariatric surgery status; Z79.51 Long term (current) use of inhaled steroids; Z79.891 Long term (current) use of opiate analgesic; Z88.1 Allergy status to other antibiotic agents; Z79.899 Other long term (current) drug therapy

== ENCOUNTER 2018-09-19 09:03 | Emergency (ER) | payer BC, OTHER ==
--- NOTE | 2018-09-19 09:46 | ED.PDOC ---
History of Present Illness - General Chief Complaint: Respiratory Problem Stated Complaint: coughing blood Time Seen by Provider: 09/19/18 09:45 Source: patient Exam Limitations: no limitations - History of Present Illness Comments: Tonya Stringer 38 y/o female stated that she had the Flu last week and took Xofluza got better but had slightly productive cough then today has blood tinged phlegm when coughing.Stated had been diagnosed with Bronchiectasis and was admitted here Timing/Duration: this morning Cough Quality/Degree: moderate, dry cough Possible Cause: no prior episodes Improving Factors: nothing Worsening Factors: nothing Associated Symptoms: denies symptoms Respiratory Risk Factors: no cause identified, other - post viral Allergies/Adverse Reactions: Allergies Azithromycin Adverse Reaction (Verified 09/19/18 09:47) Unknown Home Medications: Ambulatory Orders RX: Multiple Vitamin [Multi Vitamin] 1 tab PO DAILY 06/03/17 RX: Azathioprine [Imuran] 50 mg PO DAILY 12/31/17 RX: Cyanocobalamin Inj [Vitamin B-12 Inj] 1,000 mcg INJ MONTHLY 12/31/17 Methylprednisolone [Medrol Dose Tobias] 4 mg PO DAILY 6 Days #21 tab 08/26/18 Metoclopramide Tab [Reglan Tab] 5 mg PO AC PRN #30 tab 08/26/18 Ondansetron [Zofran Odt] 4 mg PO Q4HR PRN #15 tab 08/26/18 Pantoprazole Sodium [Protonix] 20 mg PO ACBK #30 tablet 08/26/18 RX: Qexwpdeswhrdx-Vxxo-Orhujzkyxu [Fioricet] 1 ea PO Q4H PRN #30 tab 08/26/18 RX: Levofloxacin [Levaquin] 750 mg PO DAILY #7 tablet 08/26/18 RX: guaiFENesin ER TAB [Mucinex Tab] 1,200 mg PO BID tab 08/26/18 Cefuroxime Axetil [Ceftin] 500 mg PO Q12H 7 Days #14 tablet 09/19/18 Review of Systems - Review of Systems Constitutional: States: no symptoms reported EENTM: States: no symptoms reported Respiratory: States: see HPI, cough Cardiology: States: no symptoms reported Gastrointestinal/Abdominal: States: no symptoms reported Genitourinary: States: no symptoms reported Musculoskeletal: States: no symptoms reported Skin: States: no symptoms reported All other Systems: Reviewed and Negative, No Change from Baseline Past Medical History (General) - Patient Medical History Hx Seizures: No Hx Stroke: No Hx Asthma: No Hx of COPD: - Bronchiectasis Hx Congestive Heart Failure: No Hx Pacemaker: No Hx Hypertension: No Hx Diabetes: No - gestional with preg 2013 Hx Renal Disease: No Hx MRSA: No Surgical History: tonsillectomy, other - gasrtic sleeve,btl,sinus surgery - Vaccination History Hx Tetanus, Diphtheria Vaccination: Yes Hx Influenza Vaccination: Yes - 2016 Hx Pneumococcal Vaccination: Yes - Social History Hx Tobacco Use: No Hx Alcohol Use: No Hx Substance Use: No Hx Substance Use Treatment: No Hx Physical Abuse: No Hx Emotional Abuse: No - Female History Hx Last Menstrual Period: 11/23/17 Patient : No Expected Date of Delivery:: 05/19/14 Family Medical History - Family History Mother Name: Venessa Age (years): 51 Living Status: Still Living Hx Family Asthma: Yes Age of Onset (years of age): 21 Hx Family Congestive Heart Failure: No Hx Family Hypertension: Yes Age of Onset (years of age): 27 Hx Family Stroke: Yes Age of Onset (years of age): 27 Hx Cardiac Disease: Yes - MVP Age of Onset (years of age): 35 Hx Family Diabetes: Yes Age of Onset (years of age): 46 Hx Family Cancer: Yes - cervical-sister;Breast-aunt Physical Exam - Physical Exam General Appearance: Alert, Comfortable, No apparent distress Eye Exam: bilateral normal ENT Exam: normal ENT inspection, hearing grossly normal, pharynx normal Neck: supple, trachea midline Respiratory: chest non-tender, lungs clear, normal breath sounds, no respiratory distress Cardiovascular/Chest: normal peripheral pulses, regular rate, rhythm, no murmur Gastrointestinal/Abdominal: non tender, soft, no organomegaly Extremity: no pedal edema, no calf tenderness Neurologic: alert, oriented x 3 Skin Exam: normal color, warm/dry Progress - Progress Progress: 09/19/18 12:53 Vital Signs - 8 hr 09/19/18 09/19/18 09:30 10:03 Temperature 98.1 F Pulse Rate 69 Pulse Rate [ 61 Right Radial] Respiratory 20 20 Rate Blood Pressure 118/75 [Right Arm] O2 Sat by Pulse 98 99 Oximetry - Results/Orders Results/Orders: 09/19/18 09:47 IV Care:Saline Lock per Protoc QSHIFT 09/19/18 09:49 SVN/Updraft Therapy .ONCE 09/19/18 09:50 SPUTUM CULTURE Stat 09/19/18 10:54 IV Care:Saline Lock per Protoc QSHIFT Laboratory Results - last 24 hr 09/19/18 09/19/18 10:00 10:00 WBC 4.8 RBC 4.41 Hgb 12.7 Hct 38.4 MCV 87.2 MCH 28.8 MCHC 33.0 RDW 13.7 Plt Count 250 MPV 8.9 Absolute Neuts (auto) 3.30 Absolute Lymphs (auto) 1.00 Absolute Monos (auto) 0.30 Absolute Eos (auto) 0.10 Absolute Basos (auto) 0.00 Neutrophils % 68.9 Lymphocytes % 21.2 Monocytes % 6.6 Eosinophils % 2.8 Basophils % 0.5 PT 10.1 INR 1.01 PTT (SP) 27.6 D-Dimer, Quantitative 0.51 H* Sodium 138 Potassium 3.7 Chloride 105 Carbon Dioxide 23 Anion Gap 13.7 BUN 11 Creatinine 0.60 BUN/Creatinine Ratio 18.3 Random Glucose 88 Serum Osmolality 274.5 L Calcium 8.7 Magnesium 1.8 Total Bilirubin 0.5 Direct Bilirubin < 0.1 Indirect Bilirubin 0.4 AST 22 ALT 19 Alkaline Phosphatase 53 Creatine Kinase 48 CK-MB (CK-2) 0.5 CK-MB (CK-2) % 1.04 Troponin I < 0.02 B-Natriuretic Peptide 48.2 Serum Total Protein 6.8 Albumin 3.7 Discuss all test results with patient and stated has appointment with Lung specialist on 22 September 2018 - EKG/XRAY/CT CT Ordered: Yes - NO PE;dilatation of distal bronchioles Departure - Departure Clinical Impression: Bronchiectasis without acute exacerbation, Cough with hemoptysis Time of Disposition: 12:56 Disposition: Discharge to Home or Self Care Condition: Fair Departure Forms: ED Discharge - Pt. Copy, Patient Portal Self Enrollment Instructions: Bronchiectasis in Adults Referrals: Darin Garcia MD [Primary Care Provider] - 1-2 Weeks Prescriptions: Cefuroxime Axetil [Ceftin] 500 mg PO Q12H 7 Days #14 tablet Home Medications: Ambulatory Orders RX: Multiple Vitamin [Multi Vitamin] 1 tab PO DAILY 06/03/17 RX: Azathioprine [Imuran] 50 mg PO DAILY 12/31/17 RX: Cyanocobalamin Inj [Vitamin B-12 Inj] 1,000 mcg INJ MONTHLY 12/31/17 Methylprednisolone [Medrol Dose Tobias] 4 mg PO DAILY 6 Days #21 tab 08/26/18 Metoclopramide Tab [Reglan Tab] 5 mg PO AC PRN #30 tab 08/26/18 Ondansetron [Zofran Odt] 4 mg PO Q4HR PRN #15 tab 08/26/18 Pantoprazole Sodium [Protonix] 20 mg PO ACBK #30 tablet 08/26/18 RX: Tshbqirsaefkd-Izlp-Ooqjhiklak [Fioricet] 1 ea PO Q4H PRN #30 tab 08/26/18 RX: Levofloxacin [Levaquin] 750 mg PO DAILY #7 tablet 08/26/18 RX: guaiFENesin ER TAB [Mucinex Tab] 1,200 mg PO BID tab 08/26/18 Cefuroxime Axetil [Ceftin] 500 mg PO Q12H 7 Days #14 tablet 09/19/18 Additional Instructions: Keep appointment with [employer] 22 Sep 2018;Continue with all home medications;Return to ER as needed
[2018-09-19] MEDS ORDERED: BENZONATATE PERLES 100 MG CAP PO ONE (09:47)
[2018-09-19] MEDS ORDERED: diphenhydrAMINE HCL 25 MG CAP PO ONE (09:47)
[2018-09-19] MEDS ORDERED: IPRATROPIUM/ALBUTEROL 3 ML VIAL NEB ONE (09:47)
--- NOTE | 2018-09-19 10:26 | RAD ---
EXAM DESCRIPTION: Chest,2 Views CLINICAL HISTORY: 38 years Female, coughing up blood COMPARISON: 08/26/2018 TECHNIQUE: PA and lateral radiographs of the chest were obtained. FINDINGS: Trachea is midline.The cardiomediastinal silhouette is normal in size. The pulmonary vasculature is within normal limits. Mild bilateral perihilar prominence is noted..No evidence of pleural effusions.No evidence of pneumothorax. IMPRESSION: Bilateral perihilar prominence is noted. No acute abnormality. Electronically signed by: Lashaun Yu MD 09/19/2018 10:23 AM [facility]
[2018-09-19 10:28] VITALS: TEMP 98.1
[2018-09-19] MEDS ORDERED: SODIUM CHLORIDE 0.9% 1000ML 1,000 ML IVS ONE (10:54)
--- NOTE | 2018-09-19 12:45 | CT ---
EXAM DESCRIPTION: CTA Chest: Computed Tomography. CLINICAL HISTORY: hemoptysis, elevated d-dimer COMPARISON: CT abdomen and pelvis with contrast 08/25/2017. CT scan of the chest with contrast 06/11/2016. TECHNIQUE: Spiral-axial scans at 2.5 x 2.5 mm intervals through the pulmonary arteries and chest after bolus infusion of IV contrast. Lung algorithm 1.25 x 2.5-mm axial reconstructions. Coronal and sagittal 2.0 Mm reconstructions. 15 .0 mm PE oblique and true coronal 3-D reformatted images. No adverse reactions. Total Exam DLP: 517.79 mGy-cm. This exam was performed according to our departmental CT dose-optimization program which includes automated exposure control, adjustment of the mA and/or kV according to patient size and/or use of iterative reconstruction technique; to reduce radiation dose to as low as reasonably achievable (ALARA). FINDINGS: Heart and great vessels: Approximately 80% enhancement of the pulmonary artery system from the main pulmonary artery to the bilateral subsegmental pulmonary artery branches with no filling defects. Peripheral pulmonary arterial branches are symmetric in caliber bilaterally. Aorta and other thoracic, brachiocephalic, and coronary vessels unremarkable. Lungs and airways: Region of thickened septae, dilated terminal bronchioles and alveoli in the right medial lobe abutting the medial pleura and mediastinum and the anterior inferior right major fissure with collapse of the medial lobe, elevation of the inferior right major fissure, and compensatory expansion of the right upper and lower lobes. This has progressed since the prior study. There is minimally narrowing of the airways extending into this segment and subsegmental but no definite endobronchial lesion or obstruction. Scarring in the inferior lingula, and minimal volume loss extending to the inferior left hilum. Minimal posterior dependent groundglass density bilaterally. No new infiltrates, no masses, no abnormal nodules. Bilateral krystina and mediastinum: Evaluation somewhat limited due to high density of the IV contrast in the great vessels. 1 cm lymph nodes in the right hilum, subcarinal region and AP window. No large soft tissue masses. Chest wall, axilla, base of neck: No enlarged nodes soft tissue masses or soft tissue asymmetry. Thyroid gland only partially visualized. Upper abdomen: Included peritoneal cavity with no free air or fluid. No fatty stranding. Gallbladder visualized. Included organs showing normal enhancement. Surgical sutures along the greater curvature and fundus of the stomach which is smaller than normal. Osseous structures: Minimal spondylosis in the thoracic spine. No lytic or blastic lesions. IMPRESSION: 1. No CTA evidence of acute pulmonary embolus. Contrast enhancement in the pulmonary artery system was approximately 80% of optimal but still diagnostic study. 2. Progressive volume loss in the right middle lobe with dilated air ways and airspaces. Compared to prior chest CT scan May 2016. Compensatory expansion of the right upper and right lower lobes. More septal thickening medially in the lobe but no definite mass. Right hilar nodes are not definitely enlarged. No abnormal nodules elsewhere. Electronically signed by: Frantz Sal MD 09/19/2018 12:42 PM [employer]
[2018-09-19 13:07] VITALS: BP 108/67; O2SAT 100
== END 2018-09-19 13:03 | disposition home or self-care (01) ==
LOC: ER 09:03
DX: J47.9 Bronchiectasis, uncomplicated (principal); R04.2 Hemoptysis; Z79.899 Other long term (current) drug therapy; Z88.1 Allergy status to other antibiotic agents
CPT/HCPCS: 36415; 71046; 71275; 80048; 80076; 82550; 82553; 83880; 84484; 85025; 85379; 85610; 85730; 87070; 94640; J7030; J7620; Q0163

== ENCOUNTER → 2018-09-30 | Outpatient (CLI) | payer BC, OTHER ==
--- NOTE | 2018-09-30 15:57 | MRI ---
EXAM DESCRIPTION: Lumbar Spine w/o Contrast : Magnetic Resonance Imaging. CLINICAL HISTORY: M54.16 COMPARISON: CT scans of the abdomen and pelvis August 2018 and March 2016. TECHNIQUE: Multiplanar, multiple standard sequences, non contrast MRI, lumbar spine. FINDINGS: Old injury of the anterior superior L5 endplate and superior anterior cortex of the L5 vertebral body. Bone density attached to the anterior ligament from the remainder of the vertebral body. Minimal Modic type II endplate reactive changes L5 abutting the prior injury site. No marrow edema at the site or in the fragment. Anterior more than posterior L4-L5 disc desiccation and disc space loss. Posterior broad-based bulge 3 mm. Minimal right facet joint arthrosis. Bilateral flavum ligament hypertrophy. AP canal diameter 9 mm. Bilateral mild foraminal narrowing. Minimal effacement bilateral subarticular recesses and the L5 nerves. The superior L5 endplate injury was present on pelvic CT scan in March 2016. L5-S1: Normal signal in the disc and disc space preserved. 2 mm retrolisthesis. Facets and ligaments unremarkable. Mild canal narrowing. Moderate to severe bilateral foraminal narrowing. L3-L4: No significant disc desiccation. Minimal narrowing of the transverse diameter of the spinal canal. AP canal diameter 11 mm. Facet joints and posterior ligaments unremarkable. Bilateral foramina are patent. L2-L3: Minimal disc desiccation with disc space preserved and no posterior bulging. Narrowing of the transverse canal diameter. AP canal diameter 12 mm. Bilateral foramina are patent. L1-L2: Normal signal in the disc with disc space preserved. Concavities in the superior and inferior endplates. Posterior elements unremarkable. Mild canal narrowing. Bilateral foramina are patent. Conus terminates at L1. T12-L1: Normal signal in the disc with disc space preserved. Posterior elements unremarkable. Trace canal narrowing. Bilateral foramina are patent. No scoliosis. Paravertebral soft tissues unremarkable. . Normal marrow signal in the remaining vertebral bodies and the posterior elements. Vertebral bodies are not compressed at any level. IMPRESSION: 1. Previous hyperextension of hyperflexion injury of the anterior aspect of the superior L5 endplate with disc degeneration and mild spondylosis at the site. No marrow edema. L4-L5 disc desiccation and posterior bulge. Mild central canal stenosis. Foramina are narrow but no nerve root compromise. Grade 1 retrolisthesis. Minimal effacement of the bilateral subarticular recesses abutting the L5 nerves. 2. Bony canal narrowing at L5-S1 affecting the bilateral foramina, with possible bilateral L5 nerve root compromise. Correlate for radiculopathy. No canal stenosis. 3. Bony canal narrowing from T12-L1 down to L3-L4. Electronically signed by: Frantz Sal MD 09/30/2018 3:54 PM CDT
== END ==
LOC: MRI 07:00
PROVIDERS: ATTEND Family Medicine
DX: M51.16 Intervertebral disc disorders with radiculopathy, lumbar region (principal); M47.896 Other spondylosis, lumbar region

== ENCOUNTER → 2019-03-26 | Outpatient (CLI) | payer BC, OTHER ==
--- NOTE | 2019-03-27 17:10 | MAM ---
EXAM DESCRIPTION: 3D Screening BILATERAL : Digital Mammography. CLINICAL HISTORY: 38 years Female Screening . No complaints or personal history of breast cancer. Remote family history of breast cancer in mother with ovarian cancer. Childbirth. Premenopausal. No HRT Lifetime risk of developing breast cancer (Tyrer-Cuzick model)(%): 9.1. COMPARISON: Baseline study at this facility.. No prior reports. TECHNIQUE: Bilateral CC and MLO projection full-field images, digital tomosynthesis mammographic technique. Bilateral digital 2-D full-field MLO images. CAD not available for tomosynthesis or 2-D images. FINDINGS: The breast parenchymal density pattern is: Heterogeneously dense breast tissue, which may obscure small masses. No skin thickening or nipple retraction. Intramammary right axillary lymph nodes. No focal, stellate mass or density, focal asymmetry , and no suspicious microcalcifications bilaterally IMPRESSION: Benign exam. BIRAD CATEGORY: 2 BENIGN FINDINGS. RECOMMENDATIONS: FOLLOW UP: Routine digital bilateral mammographic screening, one year interval from March 2019. Written communication explaining the IMPRESSION and follow-up, will be mailed to the patient and referring health care provider. According to the [employer], yearly mammograms are recommended starting at age 40 and continuing as long as a woman is in good health. Any breast change noted on a breast self-exam should be reported promptly to the patient's healthcare provider. Breast MRI is recommended for women with an approximately 20-25% or greater lifetime risk of breast cancer, including women with a strong family history of breast or ovarian cancer and women who have been treated for Hodgkin's disease. A negative mammographic report should not delay tissue diagnosis in patients with significant clinical history or physical findings. Extremely dense breast tissue limits the sensitivity of digital mammography. Electronically signed by: Frantz Sal MD 03/27/2019 5:09 PM CDT
== END ==
LOC: MAMMO 16:00
PROVIDERS: ATTEND Surgery
DX: Z12.31 Encounter for screening mammogram for malignant neoplasm of breast (principal)

== ENCOUNTER → 2020-01-04 | Outpatient (CLI) | payer BC, OTHER | LOC: GMALS 14:26 | PROVIDERS: ATTEND Nurse Practitioner Acute Care | DX: D50.8 Other iron deficiency anemias (principal); R53.83 Other fatigue ==

== ENCOUNTER 2020-05-12 14:54 | Emergency (ER) | payer OTHER ==
[2020-05-12] MEDS ORDERED: AZITHROMYCIN IV 500 MG in SODIUM CHLORIDE 0.9% 250ML 250 ML IVPB ONE (15:17)
[2020-05-12] MEDS ORDERED: DEXAMETHASONE INJ 10 MG/ML VIAL IV ONE (15:17)
[2020-05-12] MEDS ORDERED: CEFEPIME 2 GM in SODIUM CHL 0.9% 100ML MINI-BAG 100 ML IVPB ONE (15:17)
[2020-05-12] MEDS ORDERED: HYDROcodone 5MG/APAP 325MG 1 EA TAB PO ONE (16:08)
[2020-05-12] MEDS ORDERED: HYDROcodone 5MG/APAP 325MG 1 EA TAB ONE (16:09)
--- NOTE | 2020-05-12 17:12 | CT ---
EXAM: Chest w/o Contrast CLINICAL INDICATION: Bronchiectasis, COVID-19 COMPARISON: 09/19/2018 TECHNIQUE: The CT scan was done using contiguous axial 5 mm noncontrast sections through the chest. This exam was performed according to our departmental dose-optimization program, which includes automated exposure control, adjustment of the mA and/or kV according to patient size and/or use of iterative reconstruction technique. FINDINGS: There are no enlarged mediastinal or hilar lymph nodes. Bilateral breast implants are identified. Surgical changes are noted involving the stomach. Upper abdominal structures are otherwise unremarkable. Chronic bronchiectasis in the anteromedial right upper lobe and right middle lobe are stable from the previous study. The lungs are otherwise clear with no consolidation, infiltrate, pleural effusion, or pneumothorax. IMPRESSION: 1. Stable bronchiectasis in the anteromedial right upper lobe and right middle lobe. 2. Otherwise negative chest CT. No acute process. Electronically signed by: Rakesh Weber MD 05/12/2020 5:10 PM CDT
--- NOTE | 2020-05-12 17:25 | ED.PDOC ---
History of Present Illness - General Chief Complaint: Respiratory Problem Stated Complaint: SOB, body aches, congestion Time Seen by Provider: 05/12/20 15:06 Source: patient Exam Limitations: no limitations - History of Present Illness Initial Comments: The patient is a 39-year-old female presented emergency room secondary to worsening symptoms of shortness of breath as well as pleurisy symptoms. The patient has known significant bronchiectasis that is apparently a congenital issue according to her. Questionable fever. No rash. No chest pain aside from pleurisy. No palpitations. She has had 3 days of symptoms of runny nose, body aches, low-grade fevers and increased sputum. She tested positive for coronavirus yesterday and was given doses of Rocephin and azithromycin yesterday. She does have breathing treatments at home but has not been doing them. Timing/Duration: other - 3 days Severity: moderate Improving Factors: nothing Worsening Factors: nothing Associated Symptoms: chest pain, cough, headaches, loss of appetite, malaise, shortness of breath Allergies/Adverse Reactions: Allergies NO KNOWN ALLERGY Allergy (Verified 05/12/20 15:20) Home Medications: Ambulatory Orders HYDROcodone 5MG/APAP 325MG 05/12/20 Zolpidem Tartrate [Ambien] 05/12/20 Review of Systems - Review of Systems Constitutional: States: malaise EENTM: States: nose congestion, throat pain - Mild Respiratory: States: cough, short of breath Cardiology: States: chest pain Gastrointestinal/Abdominal: States: no symptoms reported Genitourinary: States: no symptoms reported Musculoskeletal: States: other - Generalized body aches Skin: States: no symptoms reported Neurological: States: headache Endocrine: States: no symptoms reported All other Systems: No Change from Baseline Past Medical History (General) - Patient Medical History Hx Seizures: No Hx Stroke: No Hx Asthma: No Hx of COPD: - Bronchiectasis Hx Cardiac Disorders: No Hx Congestive Heart Failure: No Hx Pacemaker: No Hx Hypertension: No Hx Thyroid Disease: No Hx Diabetes: No - gestional with preg 2014 Hx Gastroesophageal Reflux: No Hx Renal Disease: No Hx Cancer: No Hx Hepatitis C: No Hx MRSA: No Surgical History: tonsillectomy - Vaccination History Hx Tetanus, Diphtheria Vaccination: Yes Hx Influenza Vaccination: Yes Hx Pneumococcal Vaccination: Yes - Social History Hx Tobacco Use: No Hx Alcohol Use: No Hx Substance Use: No Hx Substance Use Treatment: No Hx Depression: No Hx Physical Abuse: No Hx Emotional Abuse: No - Female History Hx Last Menstrual Period: 11/23/17 Patient : No Expected Date of Delivery:: 05/19/14 Family Medical History - Family History Mother Name: Venessa Age (years): 51 Living Status: Still Living Hx Family Asthma: Yes Age of Onset (years of age): 21 Hx Family Congestive Heart Failure: No Hx Family Hypertension: Yes Age of Onset (years of age): 27 Hx Family Stroke: Yes Age of Onset (years of age): 27 Hx Cardiac Disease: Yes - MVP Age of Onset (years of age): 35 Hx Family Diabetes: Yes Age of Onset (years of age): 46 Hx Family Cancer: Yes - cervical-sister;Breast-aunt Physical Exam - Physical Exam General Appearance: Alert, Other - The patient does appear uncomfortable Eye Exam: bilateral normal Ears, Nose, Throat: hearing grossly normal, nasal congestion Neck: full range of motion, supple Respiratory: other - Mild increased work of breathing. Coarse rhonchi. Good air movement. 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, alert, normal mood/affect, oriented x 3 Skin Exam: normal color Comments: Vital Signs - 24 hr 05/12/20 05/12/20 05/12/20 15:02 15:07 16:00 Temperature 99.4 F 99.0 F Pulse Rate [ 72 62 Right Radial] Respiratory 26 H 22 20 Rate Blood Pressure 123/78 111/66 [Right Arm] O2 Sat by Pulse 99 98 Oximetry 05/12/20 17:00 Temperature 98.0 F Pulse Rate [ 57 L Right Radial] Respiratory 20 Rate Blood Pressure 122/75 [Right Arm] O2 Sat by Pulse 99 Oximetry Progress - Progress Progress: 05/12/20 17:26 The patient is a 39-year-old female presented emergency room secondary to increasing shortness of breath and pleurisy symptoms related to her coronavirus diagnosis on top of her chronic bronchiectasis. The patient has had a history of frequent rapid deterioration from a pulmonary standpoint with previous infections. For this reason the patient is being brought in for aggressive treatment. CT scan at this point is at least somewhat reassuring. The patient has received doses of dexamethasone, remdesivir, azithromycin and cefepime. Blood and sputum cultures are being done. Once she is in a room breathing treatments, possibly including Mucomyst can be done. Encourage oral intake and ambulation within the room. The patient may also benefit from CPT. Admit for continued care and monitoring on this high risk patient. [email or web address] [email or web address] [phone] - Results/Orders Results/Orders: CT scan of the chest without contrast shows chronic bronchiectasis. No large lobar pneumonia. No acute otherwise. See report for details. Blood and sputum cultures are being done. Laboratory Tests 05/12/20 05/12/20 05/12/20 15:15 15:15 15:15 WBC 3.3 L RBC 4.64 Hgb 11.8 L Hct 36.6 MCV 78.8 L MCH 25.5 L MCHC 32.3 L RDW 15.8 H Plt Count 213 MPV 8.8 Absolute Neuts (auto) 1.70 L Absolute Lymphs (auto) 0.90 L Absolute Monos (auto) 0.50 Absolute Eos (auto) 0.10 Absolute Basos (auto) 0.00 Neutrophils % 52.3 Lymphocytes % 27.5 Monocytes % 16.2 H Eosinophils % 2.9 Basophils % 1.1 Fibrinogen 349 D-Dimer, Quantitative 152.0 Sodium 139 Potassium 4.3 Chloride 106 Carbon Dioxide 24 Anion Gap 13.3 BUN 16 Creatinine 0.74 BUN/Creatinine Ratio 21.6 H Random Glucose 78 Serum Osmolality 277.6 Calcium 8.6 Total Bilirubin 0.4 AST 24 ALT 15 Alkaline Phosphatase 42 Creatine Kinase 76 CK-MB (CK-2) 1.3 CK-MB (CK-2) % Not Reportable Troponin I < 0.02 C-Reactive Protein < 0.8 B-Natriuretic Peptide 17.8 Serum Total Protein 7.3 Albumin 3.9 Globulin 3.4 Albumin/Globulin Ratio 1.1 - EKG/XRAY/CT CT Ordered: Yes Departure - Departure Clinical Impression: COVID-19, Pleurisy Bronchiectasis Qualifiers: Bronchiectasis type: with acute exacerbation Qualified Code(s): J47.1 - Bronchiectasis with (acute) exacerbation Disposition: Admit Patient Departure Forms: ED Discharge - Pt. Copy, Patient Portal Self Enrollment Referrals: Darin Garcia MD [Primary Care Provider] - 1-2 Weeks Home Medications: Ambulatory Orders HYDROcodone 5MG/APAP 325MG 05/12/20 Zolpidem Tartrate [Ambien] 05/12/20 Decision To Admit - Decistion To Admit Decision to Admit Reason: Medical Nature Decision to Admit Date: 05/12/20 Decision to Admit Time: 17:28
[2020-05-12] MEDS ORDERED: traMADol HCL 50 MG TAB PO ONE (19:57)
[2020-05-12 20:44] VITALS: BP 112/77; TEMP 97.7; O2SAT 95
[2020-05-13] MEDS ORDERED: REMDESIVIR 200 MG in SODIUM CHLORIDE 0.9% 250ML 250 ML IVPB ONE (15:18)
== END 2020-05-12 18:31 | disposition short-term general hospital (02) ==
LOC: ER 14:54
DX: U07.1 COVID-19 (principal); J47.1 Bronchiectasis with (acute) exacerbation; R09.1 Pleurisy
CPT/HCPCS: 36415; 71250; 80053; 82550; 82553; 83880; 84484; 85025; 85379; 85384; 86140; 87040; J0456; J0692; J1100; J7050